=== PATIENT | male | born 1990 | race Caucasian/White ===

== ENCOUNTER 2016-09-08 13:35 | Emergency (ER) | payer SELFPAY ==
--- NOTE | 2016-09-08 14:37 | DIAGNOSTIC IMAGING REPORT ---
PROCEDURE: XR CHEST 1 VIEW INDICATION: SHORTNESS OF BREATH TECHNIQUE: Portable AP view 02:02 p.m. COMPARISON: None. FINDINGS: Lungs are clear. Heart and mediastinum are normal. Thorax is normal. IMPRESSION: 1. Negative chest.
--- NOTE | 2016-09-08 14:58 | ED CLINICAL REPORT ---
Clinical Report - Physicians/Mid Levels [facility] [address] [place] [address] 09/08/2016 13:38 Patient: GIRMA ASTORGA Time Seen: 1355; initial patient contact, initial documentation, patient care assumed. Arrived- By private vehicle. Historian- patient. HISTORY OF PRESENT ILLNESS Chief Complaint: DYSPNEA. This started about 1 weeks ago and is still present. The dyspnea is described as mild. The patient has had sputum production, a cough and wheezing. No fever or chest pain or discomfort. He has had moderate dyspnea on exertion of sudden onset. Initially, it was precipitated by a brisk walk and moderate exertion. Now, it is precipitated by a short walk and mild exertion. (used his friend's inhaler). Similar symptoms previously: None. Recent medical care: The patient was seen recently in a clinic. 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 REVIEW OF SYSTEMS No sore throat, nasal discharge or sinus drainage. All systems otherwise negative, except as recorded above. PAST HISTORY Negative. SOCIAL HISTORY Former smoker. Occasional alcohol use. No drug use. No recent travel. Is a local resident. FAMILY HISTORY Diabetes in first-degree relative (father); cancer in first-degree relative. ADDITIONAL NOTES The nursing notes have been reviewed with agreement regarding the chief complaint, HPI, ROS, PMH and patient medications and allergies. PHYSICAL EXAM Vital Signs: 09/08/2016 13:31 BP: 107/81. HR: 73. RR: 18. O2 saturation: 95%. Temp: 99 F. Pain level now: 0/10. Have been reviewed as normal and appear to be correct. Appearance: Alert. No acute distress. Eyes: Pupils equal, round and reactive to light. Eyes normal inspection. ENT: Ears normal. Nose normal. Pharynx normal. Uvula midline. Neck: Normal inspection. No jugular venous distention. Neck supple. CVS: Normal heart rate and rhythm. Heart sounds normal. Pulses normal. Respiratory: No respiratory distress. Breath sounds abnormal. Inspiratory moderate bilateral wheezes diffusely. Abdomen: Soft and nontender. No organomegaly. Back: Normal inspection. Skin: Skin warm and dry. Normal skin color. No rash. Normal skin turgor. Extremities: Extremities exhibit normal ROM. No lower extremity edema. Neuro: Oriented X 3. No motor deficit. No sensory deficit. LABS, X-RAYS, AND EKG EKG: EKG time: (1348). No acute process. No acute ischemia. Normal EKG. Rate: 76. Normal EKG. The study has been interpreted contemporaneously by me (and dr armstrong). The EKG appears to be a good tracing. Interpretation time: 1348. Chest X-ray: Normal Chest X-Ray. (IMPRESSION: 1. Negative chest. Electronically Final signed by:Farhan Alfonso MD 09/08/2016 2:37:21 PM). The X-rays were interpreted by the radiologist and contemporaneously by me. Interpretation time: 14:46. PROGRESS AND PROCEDURES Course of Care: 14:46 09/08/16. RT reporting pt breathing better and pt stopped the tx on his own stating it was making him sleepy 1445. Resp even and unlabored, B breath sounds CTA, no more wheezing, and pt stated he felt better, encouraged to get otc cough med as well as rx and f/u in a few days. Patient counseled in person regarding the patient's stable condition, test results and diagnosis. Differential Diagnosis: Other possible considerations: flu, viral illness, allergies, bronchitis, pneumonia. Above considerations are based on history, physical exam, reassessment, X-Ray data and EKG. Differential diagnosis was discussed with patient. Disposition: Discharged home in good and improved condition (14:58). Condition: good and stable. CLINICAL IMPRESSION Acute bacterial mucopurulent bronchitis associated with bronchospasm. No chronic obstructive pulmonary disease or asthma. INSTRUCTIONS Avoid tobacco smoke. (over the counter cough med, such as: mucinex dm, robitussin dm, delsym dm, as discussed). Warnings: GENERAL WARNINGS: Return or contact your physician immediately if your condition worsens or changes unexpectedly, if not improving as expected, or if other problems arise. SPECIFICALLY, return if you develop chest pain, neck pain, jaw pain, shoulder pain, arm pain, back pain, fever, difficulty breathing, excessive fatigue, a fluttering sensation in the chest, fainting or leg swelling. Prescription Medications: Albuterol HFA oral inhaler: inhale 1 to 2 puffs every four to six hours as needed for difficulty breathing. Dispense one (1) unit. No refills. Zithromax 250 mg tablets: take 2 orally today, followed by 1 daily for the next 4 days. No refills. Substitution is permissible. Follow-up: Follow up with your doctor in about three days even if well. Call for an appointment. Summary of care provided to patient. Understanding of the discharge instructions verbalized by patient. Follow-up with: [facility], , , [address], [facility], [address] Follow up in about three days as needed. Call for an appointment. Summary of care provided to patient. (Electronically signed by Dianna Pickett A.R.N.P. 09/08/2016 17:04)
--- NOTE | 2016-09-08 14:58 | ED ORDER SUMMARY ---
..... Patient: GIRMA ASTORGA OrderSheet [facility] VisitID: [id number] [address] [place] [address] 26y, M Registration Date/Time: 09/08/2016 ORDER SHEET Weight: 65.7 kg (stated) Allergies: No Known Drug Allergy GENERAL ORDERS: Chest 1V Urgent (13:54 09/08/2016 MCook R.N. per protocol) (Ack 13:56 IJurca ER Tech1) (14:03 MCook R.N.) MEDICATION ORDERS: Albuterol Neb w Atrovent 1 unit dose (NOW) (14:04 09/08/2016 HBivens A.R.N.P.) (15:05 MCook R.N.) Albuterol Neb Tx 2 unit doses (NOW) (14:04 09/08/2016 HBivens A.R.N.P.) (15:06 MCook R.N.) IV FLUIDS: ORDER SHEET NOTES: [Electronically signed by Luigi Amezcua R.N. (15:19 09/08/2016)] [Electronically signed by Dianna PickettR.N.P. (17:04 09/08/2016)] [Electronically locked/signed by Luigi Amezcua R.N. (15:19 09/08/2016)]
--- NOTE | 2016-09-08 14:58 | ED NURSING NOTES ---
Clinical Report - Nurses [facility] [address] [place] [address] 09/08/2016 13:38 Patient: GIRMA ASTORGA TRIAGE Triage time 13:30 Sep 08 2016. Acuity: LEVEL 3. Chief Complaint: DIFFICULTY BREATHING and WHEEZING. Alert. No acute distress. SEPSIS SCREEN: Sepsis Screen. Negative (no infection suspected/documented). --13:48 Luigi Amezcua R.N. 13:31 09/08/16. BP: 107/81. HR: 73. RR: 18. O2 saturation: 95% on room air. Temp: 99 F. Pain level now: 0/10. --13:48 Luigi Amezcua R.N. Weight: 65.7 kg stated. Height/Length: 66 inches. BMI: 23.4. --13:39 Luigi Amzecua R.N. Medications None. --13:45 Luigi Amezcua R.N. Allergies No Known Drug Allergy. --13:45 Luigi Amezcua R.N. History Arrived by private vehicle. Historian: patient. Accompanied by family. Onset. (1-2 weeks ago). ( Pt has been having difficulty breathing for a few weeks, states there is mold in the trailer he lives in on his grandparents property.). He has had a nonproductive cough (weak). He has had wheezing. ( Chest tightness). No fever, chest pain or back pain. 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 PAST MEDICAL HX: No history of asthma or chronic obstructive pulmonary disease. Immunizations: up-to-date. SURGERY HX: No history of previous surgery. SOCIAL HX: Former smoker (Pt quit a few years ago). Occasional alcohol use. No drug use. No infectious disease exposure. FALL RISK ASSESSMENT: Fall risk assessment completed. No fall risk identified. NUTRITIONAL RISK ASSESSMENT: The nutritional risk assessment revealed no deficiencies. FUNCTIONAL ASSESSMENT: Functional assessment: no impairments noted. LEARNING NEEDS ASSESSMENT: The learning needs assessment revealed no barriers. SKIN INTEGRITY ASSESSMENT: Skin integrity risk assessment completed. No skin integrity risk identified. --13:48 Luigi Amezcua R.N. PROBLEMS: no known problems. ADDITIONAL SURGERIES: no known surgeries. Interventions ID band on patient. To treatment room. --13:48 Luigi Amezcua R.N. PHYSICAL ASSESSMENT To room via wheelchair. GENERAL / NEURO / PSYCH: Alert. Oriented X 4. Appears anxious and in distress. RESPIRATORY: Mild respiratory distress. The patient can speak in full sentences. Mild clavicular accessory muscle use. Chest nontender. Wheezing present. CVS: Normal sinus rhythm noted. SKIN: Skin is pale. Skin is warm and dry. --13:48 Luigi Amezcua R.N. NURSING PROGRESS NOTES The plan of care for this patient has been created. Monitoring of patient in place. Patient gowned. Head of bed elevated. Reassurance given. Two patient identifiers checked. Call light placed in reach. Side rails up. Bed placed in lowest position. Patient ready for evaluation- chart flagged and ED physician notified. ( RT at bedside evaluating Pt.). --13:49 Luigi Amezcua R.N. 13:53 09/08/16. Temp: 97.7 F (oral). --13:53 Luigi Amezcua R.N. EKG time: (13:45 Sep 08 2016). EKG was performed by a tech and shown to the CHOIRMASTER. --13:53 Luigi Amezcua R.N. 13:56 09/08/16. O2 saturation: 90% on room air. --13:56 Luigi Amezcua R.N. ( Placed Pt on 2L 02 nasal cannula.). --13:56 Luigi Amezcua R.N. ( XR at bedside, CHOIRMASTER in to assess Pt, grandmother and Pt's little brother stepped out in bauer.). --14:01 Luigi Amezcua R.N. 14:02 09/08/16. O2 saturation: 97% on nasal cannula at 2 liters/minute. --14:02 Luigi Amezcua R.N. 14:50 09/08/2016 ALBUTEROL NEB W ATROVENT Neb TX Nebulizer 1 unit dose given. Given by the respiratory therapist. Allergies verified and confirmed 5 rights. --15:05 Luigi Amezcua R.N. 14:56 09/08/2016 Albuterol Neb TX Nebulizer 2 unit dose given. Given by the respiratory therapist. Allergies verified and confirmed 5 rights. --15:06 Luigi Amezcua R.N. DISPOSITION / DISCHARGE 15:12 09/08/16. BP: 112/47. HR: 86. RR: 18. O2 saturation: 95% on room air. Temp: 98 F. Pain level now: 0/10. --15:15 Luigi Amezcua R.N. Condition at departure: improved and stable. The goals identified in the patient's plan of care were met. No learning barriers present. Discharge instructions provided and reviewed with the patient and family. Reviewed medication(s) side effects, precautions, dosing and course information. Prescription(s) given to the patient. Reviewed referral to a primary care physician for followup. Patient and family verbalized understanding. Written instructions provided in Upper Sorbian. The patient was discharged by the nurse practitioner. He was discharged home and accompanied by family. He left the Emergency Department ambulatory and via private vehicle. Patient driving. ( Pt dc'd in stable condition, VSS, afebrile, 02 sats stable on RA, Pt ambulatory, verbalized understanding of DC instructions.). --15:17 Luigi Amezcua R.N. Departure time: 15:Sep 08 2016. --15:17 Luigi Amezcua R.N. Locked/Released at 09/08/2016 15:19 by Luigi Amezcua R.N.
--- NOTE | 2016-09-08 14:58 | ED CLINICAL REPORT ---
Clinical Report - Physicians/Mid Levels [facility] [address] [place] [address] 09/08/2016 13:38 Patient: GIRMA ASTORAG Time Seen: 1355; initial patient contact, initial documentation, patient care assumed. Arrived- By private vehicle. Historian- patient. HISTORY OF PRESENT ILLNESS Chief Complaint: DYSPNEA. This started about 1 weeks ago and is still present. The dyspnea is described as mild. The patient has had sputum production, a cough and wheezing. No fever or chest pain or discomfort. He has had moderate dyspnea on exertion of sudden onset. Initially, it was precipitated by a brisk walk and moderate exertion. Now, it is precipitated by a short walk and mild exertion. (used his friend's inhaler). Similar symptoms previously: None. Recent medical care: The patient was seen recently in a clinic. 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 REVIEW OF SYSTEMS No sore throat, nasal discharge or sinus drainage. All systems otherwise negative, except as recorded above. PAST HISTORY Negative. SOCIAL HISTORY Former smoker. Occasional alcohol use. No drug use. No recent travel. Is a local resident. FAMILY HISTORY Diabetes in first-degree relative (father); cancer in first-degree relative. ADDITIONAL NOTES The nursing notes have been reviewed with agreement regarding the chief complaint, HPI, ROS, PMH and patient medications and allergies. PHYSICAL EXAM Vital Signs: 09/08/2016 13:31 BP: 107/81. HR: 73. RR: 18. O2 saturation: 95%. Temp: 99 F. Pain level now: 0/10. Have been reviewed as normal and appear to be correct. Appearance: Alert. No acute distress. Eyes: Pupils equal, round and reactive to light. Eyes normal inspection. ENT: Ears normal. Nose normal. Pharynx normal. Uvula midline. Neck: Normal inspection. No jugular venous distention. Neck supple. CVS: Normal heart rate and rhythm. Heart sounds normal. Pulses normal. Respiratory: No respiratory distress. Breath sounds abnormal. Inspiratory moderate bilateral wheezes diffusely. Abdomen: Soft and nontender. No organomegaly. Back: Normal inspection. Skin: Skin warm and dry. Normal skin color. No rash. Normal skin turgor. Extremities: Extremities exhibit normal ROM. No lower extremity edema. Neuro: Oriented X 3. No motor deficit. No sensory deficit. LABS, X-RAYS, AND EKG EKG: EKG time: (1348). No acute process. No acute ischemia. Normal EKG. Rate: 76. Normal EKG. The study has been interpreted contemporaneously by me (and dr armstrong). The EKG appears to be a good tracing. Interpretation time: 1348. Chest X-ray: Normal Chest X-Ray. (IMPRESSION: 1. Negative chest. Electronically Final signed by:Farhan Alfonso MD 09/08/2016 2:37:21 PM). The X-rays were interpreted by the radiologist and contemporaneously by me. Interpretation time: 14:46. PROGRESS AND PROCEDURES Course of Care: 14:46 09/08/16. RT reporting pt breathing better and pt stopped the tx on his own stating it was making him sleepy 1445. Resp even and unlabored, B breath sounds CTA, no more wheezing, and pt stated he felt better, encouraged to get otc cough med as well as rx and f/u in a few days. Patient counseled in person regarding the patient's stable condition, test results and diagnosis. Differential Diagnosis: Other possible considerations: flu, viral illness, allergies, bronchitis, pneumonia. Above considerations are based on history, physical exam, reassessment, X-Ray data and EKG. Differential diagnosis was discussed with patient. Disposition: Discharged home in good and improved condition (14:58). Condition: good and stable. CLINICAL IMPRESSION Acute bacterial mucopurulent bronchitis associated with bronchospasm. No chronic obstructive pulmonary disease or asthma. INSTRUCTIONS Avoid tobacco smoke. (over the counter cough med, such as: mucinex dm, robitussin dm, delsym dm, as discussed). Warnings: GENERAL WARNINGS: Return or contact your physician immediately if your condition worsens or changes unexpectedly, if not improving as expected, or if other problems arise. SPECIFICALLY, return if you develop chest pain, neck pain, jaw pain, shoulder pain, arm pain, back pain, fever, difficulty breathing, excessive fatigue, a fluttering sensation in the chest, fainting or leg swelling. Prescription Medications: Albuterol HFA oral inhaler: inhale 1 to 2 puffs every four to six hours as needed for difficulty breathing. Dispense one (1) unit. No refills. Zithromax 250 mg tablets: take 2 orally today, followed by 1 daily for the next 4 days. No refills. Substitution is permissible. Follow-up: Follow up with your doctor in about three days even if well. Call for an appointment. Summary of care provided to patient. Understanding of the discharge instructions verbalized by patient. Follow-up with: [facility], , , [address], [facility], [address] Follow up in about three days as needed. Call for an appointment. Summary of care provided to patient. (Electronically signed by Dianna Pickett A.R.N.P. 09/08/2016 17:04)
--- NOTE | 2016-09-08 14:58 | ED NURSING NOTES ---
Clinical Report - Nurses [facility] [address] [place] [address] 09/08/2016 13:38 Patient: GIRMA ASTORGA TRIAGE Triage time 13:30 Sep 08 2016. Acuity: LEVEL 3. Chief Complaint: DIFFICULTY BREATHING and WHEEZING. Alert. No acute distress. SEPSIS SCREEN: Sepsis Screen. Negative (no infection suspected/documented). --13:48 Luigi Amezcua R.N. 13:31 09/08/16. BP: 107/81. HR: 73. RR: 18. O2 saturation: 95% on room air. Temp: 99 F. Pain level now: 0/10. --13:48 Luigi Amezcua R.N. Weight: 65.7 kg stated. Height/Length: 66 inches. BMI: 23.4. --13:39 Luigi Amezcua R.N. Medications None. --13:45 Luigi Amezcua R.N. Allergies No Known Drug Allergy. --13:45 Luigi Amezcua R.N. History Arrived by private vehicle. Historian: patient. Accompanied by family. Onset. (1-2 weeks ago). ( Pt has been having difficulty breathing for a few weeks, states there is mold in the trailer he lives in on his grandparents property.). He has had a nonproductive cough (weak). He has had wheezing. ( Chest tightness). No fever, chest pain or back pain. 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 PAST MEDICAL HX: No history of asthma or chronic obstructive pulmonary disease. Immunizations: up-to-date. SURGERY HX: No history of previous surgery. SOCIAL HX: Former smoker (Pt quit a few years ago). Occasional alcohol use. No drug use. No infectious disease exposure. FALL RISK ASSESSMENT: Fall risk assessment completed. No fall risk identified. NUTRITIONAL RISK ASSESSMENT: The nutritional risk assessment revealed no deficiencies. FUNCTIONAL ASSESSMENT: Functional assessment: no impairments noted. LEARNING NEEDS ASSESSMENT: The learning needs assessment revealed no barriers. SKIN INTEGRITY ASSESSMENT: Skin integrity risk assessment completed. No skin integrity risk identified. --13:48 Luigi Amezcua R.N. PROBLEMS: no known problems. ADDITIONAL SURGERIES: no known surgeries. Interventions ID band on patient. To treatment room. --13:48 Luigi Amezcua R.N. PHYSICAL ASSESSMENT To room via wheelchair. GENERAL / NEURO / PSYCH: Alert. Oriented X 4. Appears anxious and in distress. RESPIRATORY: Mild respiratory distress. The patient can speak in full sentences. Mild clavicular accessory muscle use. Chest nontender. Wheezing present. CVS: Normal sinus rhythm noted. SKIN: Skin is pale. Skin is warm and dry. --13:48 Luigi Amezcua R.N. NURSING PROGRESS NOTES The plan of care for this patient has been created. Monitoring of patient in place. Patient gowned. Head of bed elevated. Reassurance given. Two patient identifiers checked. Call light placed in reach. Side rails up. Bed placed in lowest position. Patient ready for evaluation- chart flagged and ED physician notified. ( RT at bedside evaluating Pt.). --13:49 Luigi Amezcua R.N. 13:53 09/08/16. Temp: 97.7 F (oral). --13:53 Luigi Amezcua R.N. EKG time: (13:45 Sep 08 2016). EKG was performed by a tech and shown to the VOLCANOLOGIST. --13:53 Luigi Amezcua R.N. 13:56 09/08/16. O2 saturation: 90% on room air. --13:56 Luigi Amezcua R.N. ( Placed Pt on 2L 02 nasal cannula.). --13:56 Luigi Amezcua R.N. ( XR at bedside, VOLCANOLOGIST in to assess Pt, grandmother and Pt's little brother stepped out in bauer.). --14:01 Luigi Amezcua R.N. 14:02 09/08/16. O2 saturation: 97% on nasal cannula at 2 liters/minute. --14:02 Luigi Amezcua R.N. 14:50 09/08/2016 ALBUTEROL NEB W ATROVENT Neb TX Nebulizer 1 unit dose given. Given by the respiratory therapist. Allergies verified and confirmed 5 rights. --15:05 Luigi Amezcua R.N. 14:56 09/08/2016 Albuterol Neb TX Nebulizer 2 unit dose given. Given by the respiratory therapist. Allergies verified and confirmed 5 rights. --15:06 Luigi Amezcua R.N. DISPOSITION / DISCHARGE 15:12 09/08/16. BP: 112/47. HR: 86. RR: 18. O2 saturation: 95% on room air. Temp: 98 F. Pain level now: 0/10. --15:15 Luigi Amezcua R.N. Condition at departure: improved and stable. The goals identified in the patient's plan of care were met. No learning barriers present. Discharge instructions provided and reviewed with the patient and family. Reviewed medication(s) side effects, precautions, dosing and course information. Prescription(s) given to the patient. Reviewed referral to a primary care physician for followup. Patient and family verbalized understanding. Written instructions provided in Nepali. The patient was discharged by the nurse practitioner. He was discharged home and accompanied by family. He left the Emergency Department ambulatory and via private vehicle. Patient driving. ( Pt dc'd in stable condition, VSS, afebrile, 02 sats stable on RA, Pt ambulatory, verbalized understanding of DC instructions.). --15:17 Luigi Amezcua R.N. Departure time: 15:Sep 08 2016. --15:17 Luigi Amezcua R.N. Locked/Released at 09/08/2016 15:19 by Luigi Amezcua R.N.
--- NOTE | 2016-09-08 14:58 | ED ORDER SUMMARY ---
..... Patient: GIRMA ASTORGA OrderSheet [facility] VisitID: [id number] [address] [place] [address] 26y, M Registration Date/Time: 09/08/2016 ORDER SHEET Weight: 65.7 kg (stated) Allergies: No Known Drug Allergy GENERAL ORDERS: Chest 1V Urgent (13:54 09/08/2016 MCook R.N. per protocol) (Ack 13:56 IJurca ER Tech1) (14:03 MCook R.N.) MEDICATION ORDERS: Albuterol Neb w Atrovent 1 unit dose (NOW) (14:04 09/08/2016 HBivens A.R.N.P.) (15:05 MCook R.N.) Albuterol Neb Tx 2 unit doses (NOW) (14:04 09/08/2016 HBivens A.R.N.P.) (15:06 MCook R.N.) IV FLUIDS: ORDER SHEET NOTES: [Electronically signed by Luigi Amezcua R.N. (15:19 09/08/2016)] [Electronically signed by Dianna PickettR.N.P. (17:04 09/08/2016)] [Electronically locked/signed by Luigi Amezcua R.N. (15:19 09/08/2016)]
--- NOTE | 2016-09-08 17:04 | ED MAR SUMMARY ---
..... Medication Administration Record [facility] [address] [place] [address] Patient: GIRMA ASTORGA Visit ID: [id number] 26y, M Weight: 65.7 kg Height/Length: 66 in BMI: 23.4 ALLERGIES: No Known Drug Allergy Given 14:50 09/08/2016 Luigi Amezcua R.N. Medication Administered: ALBUTEROL NEB W ATROVENT, Dose: 1 unit dose Nebulizer Neb TX. Medication Ordered: Albuterol Neb w Atrovent 1 unit dose (NOW). Given 14:56 09/08/2016 Luigi Amezcua R.N. Medication Administered: ALBUTEROL [NEB TX], Dose: 2 unit dose Nebulizer Neb TX. Medication Ordered: Albuterol Neb Tx 2 unit doses (NOW).
--- NOTE | 2016-09-08 17:04 | ED MAR SUMMARY ---
..... Medication Administration Record [facility] [address] [place] [address] Patient: GIRMA ASTORGA Visit ID: [id number] 26y, M Weight: 65.7 kg Height/Length: 66 in BMI: 23.4 ALLERGIES: No Known Drug Allergy Given 14:50 09/08/2016 Luigi Amezcua R.N. Medication Administered: ALBUTEROL NEB W ATROVENT, Dose: 1 unit dose Nebulizer Neb TX. Medication Ordered: Albuterol Neb w Atrovent 1 unit dose (NOW). Given 14:56 09/08/2016 Luigi Amezcua R.N. Medication Administered: ALBUTEROL [NEB TX], Dose: 2 unit dose Nebulizer Neb TX. Medication Ordered: Albuterol Neb Tx 2 unit doses (NOW).
--- NOTE | 2016-09-08 17:04 | ED DISCHARGE INSTRUCTIONS ---
Patient: GIRMA ASTORGA General Instructions [facility] VisitID: [id number] [address] [place] [address] 26y, M Registration Date/Time: 09/08/2016 INSTRUCTIONS Avoid tobacco smoke. (over the counter cough med, such as: mucinex dm, robitussin dm, delsym dm, as discussed). Warnings: GENERAL WARNINGS: Return or contact your physician immediately if your condition worsens or changes unexpectedly, if not improving as expected, or if other problems arise. SPECIFICALLY, return if you develop chest pain, neck pain, jaw pain, shoulder pain, arm pain, back pain, fever, difficulty breathing, excessive fatigue, a fluttering sensation in the chest, fainting or leg swelling. Prescription Medications: Albuterol HFA oral inhaler: inhale 1 to 2 puffs every four to six hours as needed for difficulty breathing. Dispense one (1) unit. No refills. Zithromax 250 mg tablets: take 2 orally today, followed by 1 daily for the next 4 days. No refills. Substitution is permissible. Follow-up: Follow up with your doctor in about three days even if well. Call for an appointment. Summary of care provided to patient. Understanding of the discharge instructions verbalized by patient. Follow-up with: [facility], , , [address], [facility], [id number] Follow up in about three days as needed. Call for an appointment. Summary of care provided to patient. ADDITIONAL INFORMATION Bronchitis (Adult: Abx Tx) BRONCHITIS is an infection of the air passages (bronchial tubes). It often occurs during the common cold. Symptoms include cough with mucus (phlegm) and low-grade fever. Bronchitis usually lasts 7-14 days. Mild cases can be treated with simple home remedies. More severe infection is treated with an antibiotic. Home Care: If symptoms are severe, rest at home for the first 2-3 days. When you resume activity, don't let yourself get too tired. Do not smoke. Avoid being exposed to the smoke of others. You may use acetaminophen (Tylenol) or ibuprofen (Motrin, Advil) to control fever or pain, unless another medicine was prescribed for this. [NOTE: If you have chronic liver or kidney disease or ever had a stomach ulcer or GI bleeding, talk with your doctor before using these medicines.] Your appetite may be poor, so a light diet is fine. Avoid dehydration by drinking 6-8 glasses of fluids per day (water, soft, drinks, juices, tea, soup, etc.). Extra fluids will help loosen secretions in the lungs. Rksm-ldo-darneka cough medicines that containdextromethorphan(such as Robitussin DM) and decongestants (Actifed or Sudafed) may help relieve cough and congestion. [NOTE: Do not use decongestants if you have high blood pressure.] Finish all antibiotic medicine, even if you are feeling better after only a few days. Follow Up with your doctor or as directed if you dont start to feel better after three days. [NOTE: If you are age 65 or older, or if you have chronic asthma or COPD, we recommend a PNEUMOCOCCAL VACCINATION every five years and a yearly INFLUENZAVACCINATION (FLU-SHOT) every . Ask your doctor about this. If you had an X-ray, a radiologist will review it. You will be notified of any new findings that may affect your care.] Get Prompt Medical Attention if any of the following occur: Fever over 100.4F (38.0C) for more than three days Trouble breathing, wheezing or pain with breathing Coughing up blood or increased amounts of colored sputum Weakness, drowsiness, headache, facial pain, ear pain or a stiff neck Albuterol Sulfate Pressurized inhalation, suspension What is this medicine? ALBUTEROL (al BYOO ter ole) is a bronchodilator. It helps open up the airways in your lungs to make it easier to breathe. This medicine is used to treat and to prevent bronchospasm. How should I use this medicine? This medicine is for inhalation through the mouth. Follow the directions on your prescription label. Take your medicine at regular intervals. Do not use more often than directed. Make sure that you are using your inhaler correctly. Ask you doctor or health care provider if you have any questions. Talk to your malt house kiln operator regarding the use of this medicine in children. Special care may be needed. What side effects may I notice from receiving this medicine? Side effects that you should report to your doctor or health care management associate as soon as possible: allergic reactions like skin rash, itching or hives, swelling of the face, lips, or tongue breathing problems chest pain feeling faint or lightheaded, falls high blood pressure irregular heartbeat fever muscle cramps or weakness pain, tingling, numbness in the hands or feet vomiting Side effects that usually do not require medical attention (report to your doctor or health care management associate if they continue or are bothersome): cough difficulty sleeping headache nervousness or trembling stomach upset stuffy or runny nose throat irritation unusual taste What may interact with this medicine? anti-infectives like chloroquine and pentamidine caffeine cisapride diuretics medicines for colds medicines for depression or for emotional or psychotic conditions medicines for weight loss including some herbal products methadone some antibiotics like clarithromycin, erythromycin, levofloxacin, and linezolid some heart medicines steroid hormones like dexamethasone, cortisone, hydrocortisone theophylline thyroid hormones What if I miss a dose? If you miss a dose, use it as soon as you can. If it is almost time for your next dose, use only that dose. Do not use double or extra doses. Where should I keep my medicine? Keep out of the reach of children. Store at room temperature between 15 and 30 degrees C (59 and 86 degrees F). The contents are under pressure and may burst when exposed to heat or flame. Do not freeze. This medicine does not work as well if it is too cold. Throw away any unused medicine after the expiration date. Inhalers need to be thrown away after the labeled number of puffs have been used or by the expiration date; whichever comes first. Ventolin HFA should be thrown away 12 months after removing from foil pouch. Check the instructions that come with your medicine. What should I tell my health care provider before I take this medicine? They need to know if you have any of the following conditions: diabetes heart disease or irregular heartbeat high blood pressure pheochromocytoma seizures thyroid disease an unusual or allergic reaction to albuterol, levalbuterol, sulfites, other medicines, foods, dyes, or preservatives or trying to get breast-feeding What should I watch for while using this medicine? Tell your doctor or health care management associate if your symptoms do not improve. Do not use extra albuterol. If your asthma or bronchitis gets worse while you are using this medicine, call your doctor right away. If your mouth gets dry try chewing sugarless gum or sucking hard candy. Drink water as directed. Azithromycin Oral tablet What is this medicine? AZITHROMYCIN (jory wilkinson) is a macrolide antibiotic. It is used to treat or prevent certain kinds of bacterial infections. It will not work for colds, flu, or other viral infections. How should I use this medicine? Take this medicine by mouth with a full glass of water. Follow the directions on the prescription label. The tablets can be taken with food or on an empty stomach. If the medicine upsets your stomach, take it with food. Take your medicine at regular intervals. Do not take your medicine more often than directed. Take all of your medicine as directed even if you think your are better. Do not skip doses or stop your medicine early. Talk to your malt house kiln operator regarding the use of this medicine in children. Special care may be needed. What side effects may I notice from receiving this medicine? Side effects that you should report to your doctor or health care management associate as soon as possible: allergic reactions like skin rash, itching or hives, swelling of the face, lips, or tongue confusion, nightmares or hallucinations dark urine difficulty breathing hearing loss irregular heartbeat or chest pain pain or difficulty passing urine redness, blistering, peeling or loosening of the skin, including inside the mouth white patches or sores in the mouth yellowing of the eyes or skin Side effects that usually do not require medical attention (report to your doctor or health care management associate if they continue or are bothersome): diarrhea dizziness, drowsiness headache stomach upset or vomiting tooth discoloration vaginal irritation What may interact with this medicine? Do not take this medicine with any of the following medications: lincomycin This medicine may also interact with the following medications: amiodarone antacids cyclosporine digoxin magnesium nelfinavir phenytoin warfarin What if I miss a dose? If you miss a dose, take it as soon as you can. If it is almost time for your next dose, take only that dose. Do not take double or extra doses. Where should I keep my medicine? Keep out of the reach of children. Store at room temperature between 15 and 30 degrees C (59 and 86 degrees F). Throw away any unused medicine after the expiration date. What should I tell my health care provider before I take this medicine? They need to know if you have any of these conditions: kidney disease liver disease irregular heartbeat or heart disease an unusual or allergic reaction to azithromycin, erythromycin, other macrolide antibiotics, foods, dyes, or preservatives or trying to get breast-feeding What should I watch for while using this medicine? Tell your doctor or health care management associate if your symptoms do not improve. Do not treat diarrhea with over the counter products. Contact your doctor if you have diarrhea that lasts more than 2 days or if it is severe and watery. This medicine can make you more sensitive to the sun. Keep out of the sun. If you cannot avoid being in the sun, wear protective clothing and use sunscreen. Do not use sun lamps or tanning beds/booths. You have been given the following additional information: Bronchitis, Antiobiotic Treatment (Adult) Albuterol Sulfate Pressurized inhalation, suspension Azithromycin Oral tablet (Electronically signed by Dianna Pickett A.R.N.P. 09/08/2016 17:04)
--- NOTE | 2016-09-08 17:04 | ED MED RECONCILIATION SUMMARY ---
Patient: GIRMA ASTORGA Medication Reconciliation Report [facility] VisitID: [id number] [address] [place] [address] 26y, M Registration Date/Time: 09/08/2016 Weight: 65.7 kg Height/Length: 66 in. BMI: 23.4 ALLERGIES: No Known Drug Allergy The patient's Home Medications are listed below: NONE. The source(s) of the original Home Medication information: Not obtained. The following Medications were given to the patient in the Emergency Department: ALBUTEROL NEB W ATROVENT Neb TX 1 unit dose, administered: 09/08/2016 2:50:00 PM Albuterol [Neb Tx] Neb TX 2 unit dose, administered: 09/08/2016 2:56:00 PM The following Medications were prescribed to the patient: Albuterol HFA oral inhaler: inhale 1 to 2 puffs every four to six hours as needed for difficulty breathing. Dispense one (1) unit. No refills. -- Dianna Pickett A.R.NEugeniaP. Zithromax 250 mg tablets: take 2 orally today, followed by 1 daily for the next 4 days. No refills. Substitution is permissible. -- Dianna Pickett A.R.NEugeniaP.
--- NOTE | 2016-09-08 17:04 | ED DISCHARGE INSTRUCTIONS ---
Patient: GIRMA ASTORGA General Instructions [facility] VisitID: [id number] [address] [place] [address] 26y, M Registration Date/Time: 09/08/2016 INSTRUCTIONS Avoid tobacco smoke. (over the counter cough med, such as: mucinex dm, robitussin dm, delsym dm, as discussed). Warnings: GENERAL WARNINGS: Return or contact your physician immediately if your condition worsens or changes unexpectedly, if not improving as expected, or if other problems arise. SPECIFICALLY, return if you develop chest pain, neck pain, jaw pain, shoulder pain, arm pain, back pain, fever, difficulty breathing, excessive fatigue, a fluttering sensation in the chest, fainting or leg swelling. Prescription Medications: Albuterol HFA oral inhaler: inhale 1 to 2 puffs every four to six hours as needed for difficulty breathing. Dispense one (1) unit. No refills. Zithromax 250 mg tablets: take 2 orally today, followed by 1 daily for the next 4 days. No refills. Substitution is permissible. Follow-up: Follow up with your doctor in about three days even if well. Call for an appointment. Summary of care provided to patient. Understanding of the discharge instructions verbalized by patient. Follow-up with: [facility], , , [address], [facility], [id number] Follow up in about three days as needed. Call for an appointment. Summary of care provided to patient. ADDITIONAL INFORMATION Bronchitis (Adult: Abx Tx) BRONCHITIS is an infection of the air passages (bronchial tubes). It often occurs during the common cold. Symptoms include cough with mucus (phlegm) and low-grade fever. Bronchitis usually lasts 7-14 days. Mild cases can be treated with simple home remedies. More severe infection is treated with an antibiotic. Home Care: If symptoms are severe, rest at home for the first 2-3 days. When you resume activity, don't let yourself get too tired. Do not smoke. Avoid being exposed to the smoke of others. You may use acetaminophen (Tylenol) or ibuprofen (Motrin, Advil) to control fever or pain, unless another medicine was prescribed for this. [NOTE: If you have chronic liver or kidney disease or ever had a stomach ulcer or GI bleeding, talk with your doctor before using these medicines.] Your appetite may be poor, so a light diet is fine. Avoid dehydration by drinking 6-8 glasses of fluids per day (water, soft, drinks, juices, tea, soup, etc.). Extra fluids will help loosen secretions in the lungs. Rrdq-zlj-jigyrdm cough medicines that containdextromethorphan(such as Robitussin DM) and decongestants (Actifed or Sudafed) may help relieve cough and congestion. [NOTE: Do not use decongestants if you have high blood pressure.] Finish all antibiotic medicine, even if you are feeling better after only a few days. Follow Up with your doctor or as directed if you dont start to feel better after three days. [NOTE: If you are age 65 or older, or if you have chronic asthma or COPD, we recommend a PNEUMOCOCCAL VACCINATION every five years and a yearly INFLUENZAVACCINATION (FLU-SHOT) every . Ask your doctor about this. If you had an X-ray, a radiologist will review it. You will be notified of any new findings that may affect your care.] Get Prompt Medical Attention if any of the following occur: Fever over 100.4F (38.0C) for more than three days Trouble breathing, wheezing or pain with breathing Coughing up blood or increased amounts of colored sputum Weakness, drowsiness, headache, facial pain, ear pain or a stiff neck Albuterol Sulfate Pressurized inhalation, suspension What is this medicine? ALBUTEROL (al BYOO ter ole) is a bronchodilator. It helps open up the airways in your lungs to make it easier to breathe. This medicine is used to treat and to prevent bronchospasm. How should I use this medicine? This medicine is for inhalation through the mouth. Follow the directions on your prescription label. Take your medicine at regular intervals. Do not use more often than directed. Make sure that you are using your inhaler correctly. Ask you doctor or health care provider if you have any questions. Talk to your job developer regarding the use of this medicine in children. Special care may be needed. What side effects may I notice from receiving this medicine? Side effects that you should report to your doctor or health aged or disabled care worker as soon as possible: allergic reactions like skin rash, itching or hives, swelling of the face, lips, or tongue breathing problems chest pain feeling faint or lightheaded, falls high blood pressure irregular heartbeat fever muscle cramps or weakness pain, tingling, numbness in the hands or feet vomiting Side effects that usually do not require medical attention (report to your doctor or health aged or disabled care worker if they continue or are bothersome): cough difficulty sleeping headache nervousness or trembling stomach upset stuffy or runny nose throat irritation unusual taste What may interact with this medicine? anti-infectives like chloroquine and pentamidine caffeine cisapride diuretics medicines for colds medicines for depression or for emotional or psychotic conditions medicines for weight loss including some herbal products methadone some antibiotics like clarithromycin, erythromycin, levofloxacin, and linezolid some heart medicines steroid hormones like dexamethasone, cortisone, hydrocortisone theophylline thyroid hormones What if I miss a dose? If you miss a dose, use it as soon as you can. If it is almost time for your next dose, use only that dose. Do not use double or extra doses. Where should I keep my medicine? Keep out of the reach of children. Store at room temperature between 15 and 30 degrees C (59 and 86 degrees F). The contents are under pressure and may burst when exposed to heat or flame. Do not freeze. This medicine does not work as well if it is too cold. Throw away any unused medicine after the expiration date. Inhalers need to be thrown away after the labeled number of puffs have been used or by the expiration date; whichever comes first. Ventolin HFA should be thrown away 12 months after removing from foil pouch. Check the instructions that come with your medicine. What should I tell my health care provider before I take this medicine? They need to know if you have any of the following conditions: diabetes heart disease or irregular heartbeat high blood pressure pheochromocytoma seizures thyroid disease an unusual or allergic reaction to albuterol, levalbuterol, sulfites, other medicines, foods, dyes, or preservatives or trying to get breast-feeding What should I watch for while using this medicine? Tell your doctor or health aged or disabled care worker if your symptoms do not improve. Do not use extra albuterol. If your asthma or bronchitis gets worse while you are using this medicine, call your doctor right away. If your mouth gets dry try chewing sugarless gum or sucking hard candy. Drink water as directed. Azithromycin Oral tablet What is this medicine? AZITHROMYCIN (jory wilkinson) is a macrolide antibiotic. It is used to treat or prevent certain kinds of bacterial infections. It will not work for colds, flu, or other viral infections. How should I use this medicine? Take this medicine by mouth with a full glass of water. Follow the directions on the prescription label. The tablets can be taken with food or on an empty stomach. If the medicine upsets your stomach, take it with food. Take your medicine at regular intervals. Do not take your medicine more often than directed. Take all of your medicine as directed even if you think your are better. Do not skip doses or stop your medicine early. Talk to your job developer regarding the use of this medicine in children. Special care may be needed. What side effects may I notice from receiving this medicine? Side effects that you should report to your doctor or health aged or disabled care worker as soon as possible: allergic reactions like skin rash, itching or hives, swelling of the face, lips, or tongue confusion, nightmares or hallucinations dark urine difficulty breathing hearing loss irregular heartbeat or chest pain pain or difficulty passing urine redness, blistering, peeling or loosening of the skin, including inside the mouth white patches or sores in the mouth yellowing of the eyes or skin Side effects that usually do not require medical attention (report to your doctor or health aged or disabled care worker if they continue or are bothersome): diarrhea dizziness, drowsiness headache stomach upset or vomiting tooth discoloration vaginal irritation What may interact with this medicine? Do not take this medicine with any of the following medications: lincomycin This medicine may also interact with the following medications: amiodarone antacids cyclosporine digoxin magnesium nelfinavir phenytoin warfarin What if I miss a dose? If you miss a dose, take it as soon as you can. If it is almost time for your next dose, take only that dose. Do not take double or extra doses. Where should I keep my medicine? Keep out of the reach of children. Store at room temperature between 15 and 30 degrees C (59 and 86 degrees F). Throw away any unused medicine after the expiration date. What should I tell my health care provider before I take this medicine? They need to know if you have any of these conditions: kidney disease liver disease irregular heartbeat or heart disease an unusual or allergic reaction to azithromycin, erythromycin, other macrolide antibiotics, foods, dyes, or preservatives or trying to get breast-feeding What should I watch for while using this medicine? Tell your doctor or health aged or disabled care worker if your symptoms do not improve. Do not treat diarrhea with over the counter products. Contact your doctor if you have diarrhea that lasts more than 2 days or if it is severe and watery. This medicine can make you more sensitive to the sun. Keep out of the sun. If you cannot avoid being in the sun, wear protective clothing and use sunscreen. Do not use sun lamps or tanning beds/booths. You have been given the following additional information: Bronchitis, Antiobiotic Treatment (Adult) Albuterol Sulfate Pressurized inhalation, suspension Azithromycin Oral tablet (Electronically signed by Dianna Pickett A.R.N.P. 09/08/2016 17:04)
--- NOTE | 2016-09-08 17:04 | ED MED RECONCILIATION SUMMARY ---
Patient: GIRMA ASTORGA Medication Reconciliation Report [facility] VisitID: [id number] [address] [place] [address] 26y, M Registration Date/Time: 09/08/2016 Weight: 65.7 kg Height/Length: 66 in. BMI: 23.4 ALLERGIES: No Known Drug Allergy The patient's Home Medications are listed below: NONE. The source(s) of the original Home Medication information: Not obtained. The following Medications were given to the patient in the Emergency Department: ALBUTEROL NEB W ATROVENT Neb TX 1 unit dose, administered: 09/08/2016 2:50:00 PM Albuterol [Neb Tx] Neb TX 2 unit dose, administered: 09/08/2016 2:56:00 PM The following Medications were prescribed to the patient: Albuterol HFA oral inhaler: inhale 1 to 2 puffs every four to six hours as needed for difficulty breathing. Dispense one (1) unit. No refills. -- Dianna Pickett A.R.NEugeniaP. Zithromax 250 mg tablets: take 2 orally today, followed by 1 daily for the next 4 days. No refills. Substitution is permissible. -- Dianna Pickett A.R.NEugeniaP.
== END 2016-09-08 15:19 | disposition home or self-care (01) ==
LOC: ED SRH 13:35
DX: J20.8 Acute bronchitis due to other specified organisms (principal); B96.89 Other specified bacterial agents as the cause of diseases classified elsewhere; Z87.891 Personal history of nicotine dependence

== ENCOUNTER 2016-09-09 18:28 | Emergency (ER) | payer SELFPAY ==
--- NOTE | 2016-09-09 20:25 | ED ORDER SUMMARY ---
..... Patient: GIRMA ASTORGA OrderSheet [facility] VisitID: [id number] [place] [address] 26y, M Registration Date/Time: 09/09/2016 ORDER SHEET Weight: 65.7 kg (stated) Allergies: No Known Drug Allergy GENERAL ORDERS: MEDICATION ORDERS: Albuterol Neb w Atrovent 1 unit dose (NOW) (19:25 09/09/2016 BONIFACIOivens A.R.N.P.) (Ack 19:29 [facility] Line Clearance Foreman) (19:48 ASing) IV FLUIDS: ORDER SHEET NOTES: [Electronically signed by Jose Miguel Luque R.N. (20:31 09/09/2016)] [Electronically signed by Dianna PickettR.N.PEugenia (20:52 09/09/2016)] [Electronically locked/signed by Jose Miguel Luque R.N. (20:31 09/09/2016)]
--- NOTE | 2016-09-09 20:25 | ED ORDER SUMMARY ---
..... 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 (20:31 09/09/2016)] [Electronically signed by Dianna PickettR.N.PEugenia (20:52 09/09/2016)] [Electronically locked/signed by Jose Miguel Luque R.N. (20:31 09/09/2016)]
--- NOTE | 2016-09-09 20:25 | ED CLINICAL REPORT ---
Clinical Report - Physicians/Mid Levels [facility] [address] [place] [address] 09/09/2016 18:27 Patient: GIRMA ASTORGA Time Seen: 19:16; initial patient contact, initial documentation, patient care assumed. Arrived- By private vehicle. Historian- patient. RETURN VISIT: recently seen in this ED by me. Seen now for the same problem as before. HISTORY OF PRESENT ILLNESS Is still present. Chief Complaint: HEADACHE. This started about 1 weeks ago. It is described as "pain". Located in the region of the right eye and left eye, frontal region and facial region. No neck pain. At its maximum, severity described as severe. When seen in the E.D., severity described as severe. Modifying factors: relieved by nothing. Not worsened by anything. No preceding symptoms, blurred vision, photophobia, associated nausea or numbness. No weakness or vomiting. No recent travel. Similar symptoms previously: None. Recent medical care: The patient was seen recently at this facility in the emergency department. ( txed here yesterday for same thing, dx bronchitis, rx albuterol and zithromax, says he got rx filled but still hasn't taken anything for the cough, was instructed to get otc cough meds, but did not). REVIEW OF SYSTEMS No fever, ear pain, sore throat or head injury. He has had sinus pressure. He has had mild difficulty breathing (used inhaler twice today). The patient has also had wheezing. He has had a moderate nonproductive cough. All systems otherwise negative, except as recorded above. PAST HISTORY See nurses notes. PROBLEMS: Bronchitis. --18:59 Radhika Jimenez, REugeniaN. ADDITIONAL SURGERIES: no known surgeries. SOCIAL HISTORY Former smoker. No alcohol use or drug use. No recent travel. Is a local resident. FAMILY HISTORY Diabetes in first-degree relative (father); other family history (cancer). ADDITIONAL NOTES The nursing notes have been reviewed with agreement regarding the chief complaint, HPI, ROS, PMH and patient medications and allergies. PHYSICAL EXAM Vital Signs: 09/09/2016 18:56 BP: 108/67. HR: 75. RR: 20. O2 saturation: 97%. Temp: 98.1 F. Have been reviewed as normal and appear to be correct. Appearance: Alert. No acute distress. Eyes: Pupils equal, round and reactive to light. Eyes normal inspection. ENT: Ears normal. Nose normal. Pharynx normal. Neck: Normal inspection. Neck supple. CVS: Normal heart rate and rhythm. Heart sounds normal. Pulses normal. Respiratory: No respiratory distress. Breath sounds abnormal. Expiratory and inspiratory mild bilateral wheezes diffusely. Abdomen: Soft and nontender. No organomegaly. Back: Normal inspection. Skin: Skin warm and dry. Normal skin color. No rash. Normal skin turgor. Extremities: Extremities exhibit normal ROM. No lower extremity edema. Neuro: Oriented X 3. Alert. Mood/affect normal. Speech normal. Cranial nerves normal (as tested). No cerebellar findings. No motor deficit. No sensory deficit. PROGRESS AND PROCEDURES Course of Care: chart from yesterday reviewed 2017. Resp even and unlabored, B breath sounds with mild insp wheeze heard R upper lobe posterior. 09/09/2016 19:19 HR: 94. RR: 32. O2 saturation: 97%. Vital Signs: have been reviewed as normal and appear to be correct. Patient and family counseled in person regarding the patient's stable condition, test results and diagnosis. Differential Diagnosis: Other possible considerations: flu, uri, sinusitis, asthma, allergies, bronchitis, pneumonia. Above considerations are based on history and physical exam. Differential diagnosis was discussed with patient. Disposition: Discharged home in good and improved condition (20:25). Condition: good and stable. CLINICAL IMPRESSION Acute bronchitis associated with bronchospasm. INSTRUCTIONS Alternate Tylenol (Acetaminophen) and Motrin (Ibuprofen) for fever, temperature greater than 101 degrees orally. Take according to label instructions. (over the counter cough medicine, continue with current course of antibiotics and inhaler, as discussed). Warnings: GENERAL WARNINGS: Return or contact your physician immediately if your condition worsens or changes unexpectedly, if not improving as expected, or if other problems arise. SPECIFICALLY, return if you develop fever, numbness, weakness or extreme fatigue. Follow-up: Follow up with your doctor in about three days even if well. Call for an appointment. Summary of care provided to patient. Understanding of the discharge instructions verbalized by patient. (Electronically signed by Dianna Pickett A.R.N.P. 09/09/2016 20:52)
--- NOTE | 2016-09-09 20:25 | ED NURSING NOTES ---
Clinical Report - Nurses [facility] [address] [place] [address] 09/09/2016 18:27 Patient: GIRMA ASTORGA TRIAGE Triage time 18:56 Sep 09 2016. Acuity: LEVEL 3. Chief Complaint: HEADACHE. KARELY COMA SCORE: [place] Coma Scale: 15- eyes open spontaneously (4); best verbal response- oriented x 4 (5); best motor response- obeys commands (6). --19:01 Radhika Jimenez R.N. 18:56 09/09/16. BP: 108/67. HR: 75. RR: 20. O2 saturation: 97%. Temp: 98.1 F. Pain level now 8/10. --19:01 Radhika Jimenez R.N. Weight: 65.7 kg stated. Height/Length: 66 inches Per Patient. BMI: 23.4. --19:00 Radhika Jimenez R.N. Medications Ibuprofen Oral. --18:58 Radhika Jimenez R.N. Albuterol Sulfate Inhalation. --18:58 Radhika Jimenez R.N. Antibiotic. --18:59 Radhika Jimenez R.N. Allergies No Known Drug Allergy. --18:59 Radhika Jimenez R.N. History Arrived by private vehicle. Historian: patient. Accompanied by family. This started today. ( Was seen yesterday and feels like he is more SOB and has a really bad headache. Used inhaler twice today.). He has had sinus pain. No nausea, vomiting, weakness, numbness or fever. PAST MEDICAL HX: Headaches. Head injury. No history of diabetes mellitus or hypertension. Immunizations: up-to-date. SOCIAL HX: Former smoker, end date 2013. No alcohol use or drug use. No recent travel. No known contact with a sick individual. SELF HARM ASSESSMENT: A self harm assessment was performed. The patient answered "no" to the question "Have you recently felt down, depressed, or hopeless?" and "Do you have thoughts of harming or killing yourself?". FALL RISK ASSESSMENT: Fall risk assessment completed. No fall risk identified. NUTRITIONAL RISK ASSESSMENT: The nutritional risk assessment revealed no deficiencies. FUNCTIONAL ASSESSMENT: Functional assessment: no impairments noted. LEARNING NEEDS ASSESSMENT: The learning needs assessment revealed no barriers. ABUSE ASSESSMENT: Abuse assessment: (yes) The patient was asked "Do you feel safe in your home?". SKIN INTEGRITY ASSESSMENT: Skin integrity risk assessment completed. No skin integrity risk identified. --19:01 Radhika Jimenez R.N. PROBLEMS: Bronchitis. --18:59 Radhika Jimenez R.N. ADDITIONAL SURGERIES: no known surgeries. Interventions ID band on patient. --19:01 Radhika Jimenez R.N. PHYSICAL ASSESSMENT Ambulatory to room. GENERAL / NEURO / PSYCH: Alert. Oriented X 4. Appears anxious. Speech within normal limits. HEENT: No facial asymmetry noted. Sinus tenderness present. Pupils equal, round and reactive to light. RESPIRATORY: Breath sounds within normal limits. ( Wheezing upper airway with exhale. +cough). CVS: Capillary refill less than 2 seconds. GI / : Abdomen soft and nontender. ( This am had BM and normal). SKIN: Skin is warm and dry. --19:02 Radhika Jimenez R.N. ( Dianna, TRAY PACKER with patient). GENERAL / NEURO / PSYCH: Alert. Oriented X 4. RESPIRATORY: Mild respiratory distress. Wheezes diffusely over both lungs. CVS: Capillary refill less than 2 seconds. --19:20 Jose Miguel Luque R.N. 19:19 09/09/16. HR: 94. RR: 32. O2 saturation: 97% on room air. O2 started via nasal cannula at 2 liters/minute. Additional comments: for SOA. --19:20 Jose Miguel Luque R.N. RESPIRATORY: ( dry cough). --19:44 Jose Miguel Luque R.N. NURSING PROGRESS NOTES Pulse oximeter and NIBP monitor placed on patient. Patient gowned. Head of bed elevated 90 degrees. Reassurance given. Lights dimmed. Call light placed in reach. Side rails up x 1. Bed placed in lowest position. Brakes of bed on. --19:03 Radhika Jimenez R.N. ( Report received from Radhika Schneider RN). --19:19 Jose Miguel Luque R.N. ( RT called). --19:22 Jose Miguel Luque R.N. DISPOSITION / DISCHARGE Departure time: 20:29. Condition at departure: improved and stable. No learning barriers present. Discharge instructions provided and reviewed with the patient. Reviewed warnings. Treatments reviewed. Reviewed referrals for followup. Patient verbalized understanding. The patient was discharged home and accompanied by family. He left the Emergency Department ambulatory and via private vehicle. ( unknown). --20:31 Jose Miguel Luque R.N. 20:29 09/09/16. BP: 130/59 taken on the left arm, while sitting. HR: 77. RR: 24 (regular and unlabored). O2 saturation: 99% on room air. --20:31 Jose Miguel Luque R.N. Locked/Released at 09/09/2016 20:31 by Jose Miguel Luque R.N.
--- NOTE | 2016-09-09 20:25 | ED NURSING NOTES ---
Clinical Report - Nurses [facility] [address] [place] [address] 09/09/2016 18:27 Patient: GIRMA ASTORGA TRIAGE Triage time 18:56 Sep 09 2016. Acuity: LEVEL 3. Chief Complaint: HEADACHE. KAERLY COMA SCORE: [place] Coma Scale: 15- eyes open spontaneously (4); best verbal response- oriented x 4 (5); best motor response- obeys commands (6). --19:01 Radhika Jimenez R.N. 18:56 09/09/16. BP: 108/67. HR: 75. RR: 20. O2 saturation: 97%. Temp: 98.1 F. Pain level now 8/10. --19:01 Radhika Jimenez R.N. Weight: 65.7 kg stated. Height/Length: 66 inches Per Patient. BMI: 23.4. --19:00 Radhika Jimenez R.N. Medications Ibuprofen Oral. --18:58 Radhika Jimenez R.N. Albuterol Sulfate Inhalation. --18:58 Radhika Jimenez R.N. Antibiotic. --18:59 Radhika Jimenez R.N. Allergies No Known Drug Allergy. --18:59 Radhika Jimenez R.N. History Arrived by private vehicle. Historian: patient. Accompanied by family. This started today. ( Was seen yesterday and feels like he is more SOB and has a really bad headache. Used inhaler twice today.). He has had sinus pain. No nausea, vomiting, weakness, numbness or fever. PAST MEDICAL HX: Headaches. Head injury. No history of diabetes mellitus or hypertension. Immunizations: up-to-date. SOCIAL HX: Former smoker, end date 2013. No alcohol use or drug use. No recent travel. No known contact with a sick individual. SELF HARM ASSESSMENT: A self harm assessment was performed. The patient answered "no" to the question "Have you recently felt down, depressed, or hopeless?" and "Do you have thoughts of harming or killing yourself?". FALL RISK ASSESSMENT: Fall risk assessment completed. No fall risk identified. NUTRITIONAL RISK ASSESSMENT: The nutritional risk assessment revealed no deficiencies. FUNCTIONAL ASSESSMENT: Functional assessment: no impairments noted. LEARNING NEEDS ASSESSMENT: The learning needs assessment revealed no barriers. ABUSE ASSESSMENT: Abuse assessment: (yes) The patient was asked "Do you feel safe in your home?". SKIN INTEGRITY ASSESSMENT: Skin integrity risk assessment completed. No skin integrity risk identified. --19:01 Radhika Jimenez R.N. PROBLEMS: Bronchitis. --18:59 Radhika Jimenez R.N. ADDITIONAL SURGERIES: no known surgeries. Interventions ID band on patient. --19:01 Radhika Jimenez R.N. PHYSICAL ASSESSMENT Ambulatory to room. GENERAL / NEURO / PSYCH: Alert. Oriented X 4. Appears anxious. Speech within normal limits. HEENT: No facial asymmetry noted. Sinus tenderness present. Pupils equal, round and reactive to light. RESPIRATORY: Breath sounds within normal limits. ( Wheezing upper airway with exhale. +cough). CVS: Capillary refill less than 2 seconds. GI / : Abdomen soft and nontender. ( This am had BM and normal). SKIN: Skin is warm and dry. --19:02 Radhika Jimenez R.N. ( Dianna, SAFETY INVESTIGATOR/CAUSE ANALYST with patient). GENERAL / NEURO / PSYCH: Alert. Oriented X 4. RESPIRATORY: Mild respiratory distress. Wheezes diffusely over both lungs. CVS: Capillary refill less than 2 seconds. --19:20 Jose Miguel Luque R.N. 19:19 09/09/16. HR: 94. RR: 32. O2 saturation: 97% on room air. O2 started via nasal cannula at 2 liters/minute. Additional comments: for SOA. --19:20 Jose Miguel Luque R.N. RESPIRATORY: ( dry cough). --19:44 Jose Miguel Luque R.N. NURSING PROGRESS NOTES Pulse oximeter and NIBP monitor placed on patient. Patient gowned. Head of bed elevated 90 degrees. Reassurance given. Lights dimmed. Call light placed in reach. Side rails up x 1. Bed placed in lowest position. Brakes of bed on. --19:03 Radhika Jimenez R.N. ( Report received from Radhika Schneider RN). --19:19 Jose Miguel Luque R.N. ( RT called). --19:22 Jose Miguel Luque R.N. DISPOSITION / DISCHARGE Departure time: 20:29. Condition at departure: improved and stable. No learning barriers present. Discharge instructions provided and reviewed with the patient. Reviewed warnings. Treatments reviewed. Reviewed referrals for followup. Patient verbalized understanding. The patient was discharged home and accompanied by family. He left the Emergency Department ambulatory and via private vehicle. ( unknown). --20:31 Jose Miguel Luque R.N. 20:29 09/09/16. BP: 130/59 taken on the left arm, while sitting. HR: 77. RR: 24 (regular and unlabored). O2 saturation: 99% on room air. --20:31 Jose Miguel Luque R.N. Locked/Released at 09/09/2016 20:31 by Jose Miguel Luque R.N.
--- NOTE | 2016-09-09 20:53 | ED MED RECONCILIATION SUMMARY ---
Patient: GIRMA ASTORGA Medication Reconciliation Report [facility] VisitID: [id number] [address] [place] [address] 26y, M Registration Date/Time: 09/09/2016 Weight: 65.7 kg Height/Length: 66 in. BMI: 23.4 ALLERGIES: No Known Drug Allergy The patient's Home Medications are listed below: THE FOLLOWING MEDICATIONS NEED TO BE RECONCILED: Albuterol Sulfate Inhalation Antibiotic Ibuprofen Oral The source(s) of the original Home Medication information: Not obtained. The following Medications were given to the patient in the Emergency Department: ALBUTEROL NEB W ATROVENT Neb [place] 1 unit dose, administered: 09/09/2016 7:38:00 PM The following Medications were prescribed to the patient: None.
--- NOTE | 2016-09-09 20:53 | ED MAR SUMMARY ---
..... Medication Administration Record [address] [place] [address] Patient: GIRMA ASTORGA Visit ID: [id number] 26y, M Weight: 65.7 kg Height/Length: 66 in BMI: 23.4 ALLERGIES: No Known Drug Allergy Given 19:38 09/09/2016 Bradford Bright, Medication Administered: ALBUTEROL NEB Jennie BENNETT, Dose: 1 unit dose [place]. Medication Ordered: Albuterol Neb w Atrovent 1 unit dose (NOW).
--- NOTE | 2016-09-09 20:53 | ED MAR SUMMARY ---
..... Medication Administration Record [address] [place] [address] Patient: GIRMA ASTORGA Visit ID: [id number] 26y, M Weight: 65.7 kg Height/Length: 66 in BMI: 23.4 ALLERGIES: No Known Drug Allergy Given 19:38 09/09/2016 Bradford Bright, Medication Administered: ALBUTEROL NEB Jennie BENNETT, Dose: 1 unit dose [place]. Medication Ordered: Albuterol Neb w Atrovent 1 unit dose (NOW).
--- NOTE | 2016-09-09 20:53 | ED DISCHARGE INSTRUCTIONS ---
Patient: GIRMA ASTORGA General Instructions [facility] VisitID: [id number] [place] [address] 26y, M Registration Date/Time: 09/09/2016 Acute bronchitis associated with bronchospasm. INSTRUCTIONS Alternate Tylenol (Acetaminophen) and Motrin (Ibuprofen) for fever, temperature greater than 101 degrees orally. Take according to label instructions. (over the counter cough medicine, continue with current course of antibiotics and inhaler, as discussed). Warnings: GENERAL WARNINGS: Return or contact your physician immediately if your condition worsens or changes unexpectedly, if not improving as expected, or if other problems arise. SPECIFICALLY, return if you develop fever, numbness, weakness or extreme fatigue. Follow-up: Follow up with your doctor in about three days even if well. Call for an appointment. Summary of care provided to patient. Understanding of the discharge instructions verbalized by patient. ADDITIONAL INFORMATION Bronchitis (Adult: Abx Tx) BRONCHITIS is an infection of the air passages (bronchial tubes). It often occurs during the common cold. Symptoms include cough with mucus (phlegm) and low-grade fever. Bronchitis usually lasts 7-14 days. Mild cases can be treated with simple home remedies. More severe infection is treated with an antibiotic. Home Care: If symptoms are severe, rest at home for the first 2-3 days. When you resume activity, don't let yourself get too tired. Do not smoke. Avoid being exposed to the smoke of others. You may use acetaminophen (Tylenol) or ibuprofen (Motrin, Advil) to control fever or pain, unless another medicine was prescribed for this. [NOTE: If you have chronic liver or kidney disease or ever had a stomach ulcer or GI bleeding, talk with your doctor before using these medicines.] Your appetite may be poor, so a light diet is fine. Avoid dehydration by drinking 6-8 glasses of fluids per day (water, soft, drinks, juices, tea, soup, etc.). Extra fluids will help loosen secretions in the lungs. Uiww-wxs-bfflbrl cough medicines that containdextromethorphan(such as Robitussin DM) and decongestants (Actifed or Sudafed) may help relieve cough and congestion. [NOTE: Do not use decongestants if you have high blood pressure.] Finish all antibiotic medicine, even if you are feeling better after only a few days. Follow Up with your doctor or as directed if you dont start to feel better after three days. [NOTE: If you are age 65 or older, or if you have chronic asthma or COPD, we recommend a PNEUMOCOCCAL VACCINATION every five years and a yearly INFLUENZAVACCINATION (FLU-SHOT) every . Ask your doctor about this. If you had an X-ray, a radiologist will review it. You will be notified of any new findings that may affect your care.] Get Prompt Medical Attention if any of the following occur: Fever over 100.4F (38.0C) for more than three days Trouble breathing, wheezing or pain with breathing Coughing up blood or increased amounts of colored sputum Weakness, drowsiness, headache, facial pain, ear pain or a stiff neck Fever Control (Adult) A fever is a natural reaction of the body to an illness. In most cases, the temperature itself is not harmful. It actually helps the body fight infections. A fever does not need to be treated unless you feel very uncomfortable. Home Care If you feel warm, check your temperature. If you feel very uncomfortable and your temperature is at or higher than 100.4F (38C) oral, you may take acetaminophen (Tylenol) every 4 to 6 hours. If you cant take or keep down oral medicine, ask your pharmacist for Tylenol suppositories, which you can get without a prescription. If the fever does not respond to acetaminophen within 1 hour, take ibuprofen (Advil or Motrin). If this works, keep taking the ibuprofen every 6 to 8 hours. Note: If you have chronic liver or kidney disease or ever had a stomach ulcer or GI bleeding, talk with your doctor before using these medications. If either medication alone does not keep the fever down, you may alternate the two medicines every 3 to 4 hours, only if your healthcare provider has instructed you to do so. For example, take Motrin then wait 3 hours, take Tylenol then wait 3 hours, take Motrin, and so on. Follow your healthcare providers instructions exactly. Clothing: Keep clothing light because excess body heat is lost through the skin. The fever will go up if you wear extra layers or wrap in blankets. Fluids: Fever causes the body to lose water through evaporation. Drink plenty of fluids such as water, juice, clear sodas, jenny quirino, or lemonade. Do not use aspirin in anyone under 18 years of age who is ill with a fever. It can cause severe liver damage. Follow Up with your doctor or as advised by our staff if you do not get better after 48 hours. Get Prompt Medical Attention if any of the following occur: Fever does not get better after taking fever medication Fast or difficult breathing Earache, sinus pain, stiff or painful neck, headache, repeated diarrhea or vomiting You feel unusually irritable, drowsy, or confused A rash appears You feel weak or dizzy, or that you might faint You have been given the following additional information: Bronchitis, Antiobiotic Treatment (Adult) Fever Control (Adult) (Electronically signed by Dianna Pickett A.R.N.P. 09/09/2016 20:52)
--- NOTE | 2016-09-09 20:53 | ED MED RECONCILIATION SUMMARY ---
Patient: GIRMA ASTORGA Medication Reconciliation Report [facility] VisitID: [id number] [address] [place] [address] 26y, M Registration Date/Time: 09/09/2016 Weight: 65.7 kg Height/Length: 66 in. BMI: 23.4 ALLERGIES: No Known Drug Allergy The patient's Home Medications are listed below: THE FOLLOWING MEDICATIONS NEED TO BE RECONCILED: Albuterol Sulfate Inhalation Antibiotic Ibuprofen Oral The source(s) of the original Home Medication information: Not obtained. The following Medications were given to the patient in the Emergency Department: ALBUTEROL NEB W ATROVENT Neb [place] 1 unit dose, administered: 09/09/2016 7:38:00 PM The following Medications were prescribed to the patient: None.
== END 2016-09-09 20:29 | disposition home or self-care (01) ==
LOC: ED SRH 18:28
DX: J20.9 Acute bronchitis, unspecified (principal); Z87.891 Personal history of nicotine dependence

== ENCOUNTER 2016-09-16 02:21 | Emergency (ER) | payer SELFPAY ==
--- NOTE | 2016-09-16 03:06 | ED ORDER SUMMARY ---
..... Patient: GIRMA ASTORGA OrderSheet [facility] VisitID: [id number] [address] [place] [address] 26y, M Registration Date/Time: 09/16/2016 ORDER SHEET Weight: 65.7 kg (stated) Allergies: No Known Drug Allergy GENERAL ORDERS: Chest 2V Urgent (02:36 09/16/2016 Mal AVELAR) (Ack 2:38 AMcQuoid ER Tech1) (3:01 Kieran) MEDICATION ORDERS: Albuterol Neb Tx 2.5 mg (HHN) (pre-and post peak flows.) (02:36 09/16/2016 Mal AVELAR) (3:30 Connie Ng.NEugenia) IV FLUIDS: ORDER SHEET NOTES: [Electronically signed by Belkis Phan R.N. (03:37 09/16/2016)] [Electronically signed by Guido Schultz MD (00:14 09/17/2016)] [Electronically locked/signed by Belkis Phan R.N. (03:37 09/16/2016)]
--- NOTE | 2016-09-16 03:06 | ED CLINICAL REPORT ---
Clinical Report - Physicians/Mid Levels [facility] [address] [place] [address] 09/16/2016 2:21 Patient: GIRMA ASTORGA Time Seen: 02:35 Sep 16 2016. Arrived- By private vehicle. Historian- patient. CPT: ER phys charges level 3 (#[id number]). HISTORY OF PRESENT ILLNESS Chief Complaint: COUGH. 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 The illness is described as moderate. The patient has had a cough. He has had moderate amounts of thick, white sputum. There has been a change from baseline. No fever, muscle aches, chills, sore throat or hoarseness. No nasal congestion or discharge, sinus pressure, sinus drainage or ear pain. Additional history - No known contact with a sick individual. (Finished antibiotics 2 days ago. Did better until today.). Similar symptoms previously: None. Recent medical care: The patient was seen recently at another facility in a clinic. Evaluation/treatment: antibiotic prescribed. Diagnosis: bronchitis. REVIEW OF SYSTEMS The patient has had a headache. No eye discomfort, nausea, vomiting, diarrhea or abdominal pain. No hay fever, pedal edema, calf pain, difficulty with urination or skin rash. No enlarged lymph nodes or joint pain. All systems otherwise negative, except as recorded above. PAST HISTORY Head Injury. Headache. Bronchitis. No history of asthma, chronic obstructive pulmonary disease or pneumonia. Additional Surgeries: no known surgeries. Medications: Albuterol Sulfate Inhalation. Allergies: No Known Drug Allergy. SOCIAL HISTORY Never smoker. History of heavy drug use: heroin. No alcohol use. ADDITIONAL NOTES The nursing notes have been reviewed. PHYSICAL EXAM Vital Signs: 09/16/2016 02:29 BP: 115/84. HR: 82. RR: 18. O2 saturation: 100%. Temp: 97.6 F. Pain level now: 3/10. Appearance: Alert. No acute distress. Anxious. Eyes: Pupils equal, round and reactive to light. Eyes normal inspection. ENT: Ears normal. Nose normal. Pharynx normal. Uvula midline. Neck: Normal inspection. Neck supple. CVS: Normal heart rate and rhythm. Heart sounds normal. Pulses normal. Respiratory: No respiratory distress. Breath sounds normal. Abdomen: Soft and nontender. Back: Normal inspection. Skin: Skin warm. Normal skin color. No rash. Extremities: Extremities exhibit normal ROM. No lower extremity edema. Neuro: Oriented X 3. No motor deficit. No sensory deficit. Reflexes normal. LABS, X-RAYS, AND EKG Chest X-ray: Normal Chest X-Ray. PROGRESS AND PROCEDURES Course of Care: Albuterol HHN Peak, tpp=817 and unchanged post. Patient/family counseled. Disposition: Discharged. Condition: stable. CLINICAL IMPRESSION Residual airway irritation from prior bronchitis. INSTRUCTIONS No strenuous activity. Rest. Drink plenty of fluids. (Continue albuterol). Warnings: Further evaluation is necessary. GENERAL WARNINGS: Return or contact your physician immediately if your condition worsens or changes unexpectedly, if not improving as expected, or if other problems arise. Your Current Medications: CONTINUE TAKING THE FOLLOWING MEDICATIONS: Albuterol Sulfate Inhalation. Prescription Medications: Prednisone 60 mg a day for 3 days. Follow-up: Follow up with your doctor in one week. Call for an appointment. Understanding of the discharge instructions verbalized by patient. (Electronically signed by Guido Schultz MD 09/17/2016 0:14)
--- NOTE | 2016-09-16 03:06 | ED NURSING NOTES ---
Clinical Report - Nurses [facility] [address] [place] [address] 09/16/2016 2:21 Patient: GIRMA ASTORGA TRIAGE Triage time 02:29. Acuity: LEVEL 4. Chief Complaint: COUGH. --02:34 Belkis Phan R.N. 02:29 09/16/16. BP: 115/84. HR: 82 (regular and normal rate). RR: 18. O2 saturation: 100% on room air. Temp: 97.6 F. Pain level now: 07/21. --02:34 Belkis Phan R.N. Weight: 65.7 kg stated. Height/Length: 66 inches Per Patient. BMI: 23.4. --02:33 Belkis Phan R.N. Medications Albuterol Sulfate Inhalation. --02:30 Belkis Phan R.N. Allergies No Known Drug Allergy. --02:30 Belkis Phan R.N. History Arrived by private vehicle. Historian: patient. Primary physician (none). Started while coughing (1 weeks ago). ( reports SOB used inhaler prior to arrival). 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 PAST MEDICAL HX: Immunizations: up-to-date. SOCIAL HX: Never smoker. History of heavy drug use: heroin. Recently used drugs just prior to arrival. Under influence in ED. No alcohol use. SELF HARM ASSESSMENT: A self harm assessment was performed. The patient answered "no" to the question "Have you recently felt down, depressed, or hopeless?", "Have you noticed less interest or pleasure in doing things?", "Do you have thoughts of harming or killing yourself?", "Are you here because you tried to hurt yourself?", "Have you ever tried to hurt yourself before today?", "Have you recently had thoughts about harming or killing others?" and "Do you have any dangerous items in your possession?". --02:34 Belkis Phan R.N. PROBLEMS: Head Injury. Headache. Bronchitis. --02:30 Belkis Phan R.N. ADDITIONAL SURGERIES: no known surgeries. Interventions ID band on patient. --02:34 Belkis Phan R.N. PHYSICAL ASSESSMENT Ambulatory to room. GENERAL / NEURO / PSYCH: Alert. Oriented X 4. Appears in no acute distress. HEENT: Pupils equal, round and reactive to light. Mouth within normal limits upon inspection. Pharynx within normal limits. Voice within normal limits. Mucous membranes are pink. RESPIRATORY: Respirations not labored. Breath sounds within normal limits. CVS: Normal sinus rhythm noted. Capillary refill less than 2 seconds. SKIN: Skin is warm and dry. Normal skin turgor. --02:35 Belkis Phan R.N. NURSING PROGRESS NOTES Two patient identifiers checked. Call light placed in reach. Side rails up x 1. Bed placed in lowest position. Brakes of bed on. --02:35 Belkis Phan R.N. Patient ready for evaluation- chart flagged. --02:35 Belkis Phan R.N. 03:00 09/16/2016 Albuterol Neb TX Nebulizer 2.5 mg given. Given by the respiratory therapist. Allergies verified and confirmed 5 rights. --03:30 Belkis Phan R.N. 03:03 09/16/2016 Albuterol Neb TX discontinued due to improvement in patient condition. --03:31 Belkis Phan R.N. DISPOSITION / DISCHARGE Departure time: 0330. Condition at departure: improved. No learning barriers present. Discharge instructions provided and reviewed with the patient. Reviewed medication(s) side effects, precautions, dosing and course information. Prescription(s) given to the patient. Work note given. Patient verbalized understanding. Written instructions provided in Korean. The patient was discharged home and unaccompanied at time of discharge. He left the Emergency Department ambulatory and via private vehicle. Patient driving. --03:37 Belkis Phan R.N. 03:35 09/16/16. BP: 111/79 taken on the left arm, while lying. HR: 87 (regular and normal rate). RR: 18. O2 saturation: 96% on room air. Temp: deferred. Pain level now: 0/10. --03:37 Belkis Phan R.N. Locked/Released at 09/16/2016 3:37 by Belkis Phan R.N.
--- NOTE | 2016-09-16 03:06 | ED CLINICAL REPORT ---
Clinical Report - Physicians/Mid Levels [facility] [address] [place] [address] 09/16/2016 2:21 Patient: GIRMA ASTORGA Time Seen: 02:35 Sep 16 2016. Arrived- By private vehicle. Historian- patient. CPT: ER phys charges level 3 (#[id number]). 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 The illness is described as moderate. The patient has had a cough. He has had moderate amounts of thick, white sputum. There has been a change from baseline. No fever, muscle aches, chills, sore throat or hoarseness. No nasal congestion or discharge, sinus pressure, sinus drainage or ear pain. Additional history - No known contact with a sick individual. (Finished antibiotics 2 days ago. Did better until today.). Similar symptoms previously: None. Recent medical care: The patient was seen recently at another facility in a clinic. Evaluation/treatment: antibiotic prescribed. Diagnosis: bronchitis. REVIEW OF SYSTEMS The patient has had a headache. No eye discomfort, nausea, vomiting, diarrhea or abdominal pain. No hay fever, pedal edema, calf pain, difficulty with urination or skin rash. No enlarged lymph nodes or joint pain. All systems otherwise negative, except as recorded above. PAST HISTORY Head Injury. Headache. Bronchitis. No history of asthma, chronic obstructive pulmonary disease or pneumonia. Additional Surgeries: no known surgeries. Medications: Albuterol Sulfate Inhalation. Allergies: No Known Drug Allergy. SOCIAL HISTORY Never smoker. History of heavy drug use: heroin. No alcohol use. ADDITIONAL NOTES The nursing notes have been reviewed. PHYSICAL EXAM Vital Signs: 09/16/2016 02:29 BP: 115/84. HR: 82. RR: 18. O2 saturation: 100%. Temp: 97.6 F. Pain level now: 3/10. Appearance: Alert. No acute distress. Anxious. Eyes: Pupils equal, round and reactive to light. Eyes normal inspection. ENT: Ears normal. Nose normal. Pharynx normal. Uvula midline. Neck: Normal inspection. Neck supple. CVS: Normal heart rate and rhythm. Heart sounds normal. Pulses normal. Respiratory: No respiratory distress. Breath sounds normal. Abdomen: Soft and nontender. Back: Normal inspection. Skin: Skin warm. Normal skin color. No rash. Extremities: Extremities exhibit normal ROM. No lower extremity edema. Neuro: Oriented X 3. No motor deficit. No sensory deficit. Reflexes normal. LABS, X-RAYS, AND EKG Chest X-ray: Normal Chest X-Ray. PROGRESS AND PROCEDURES Course of Care: Albuterol HHN Peak, btc=362 and unchanged post. Patient/family counseled. Disposition: Discharged. Condition: stable. CLINICAL IMPRESSION Residual airway irritation from prior bronchitis. INSTRUCTIONS No strenuous activity. Rest. Drink plenty of fluids. (Continue albuterol). Warnings: Further evaluation is necessary. GENERAL WARNINGS: Return or contact your physician immediately if your condition worsens or changes unexpectedly, if not improving as expected, or if other problems arise. Your Current Medications: CONTINUE TAKING THE FOLLOWING MEDICATIONS: Albuterol Sulfate Inhalation. Prescription Medications: Prednisone 60 mg a day for 3 days. Follow-up: Follow up with your doctor in one week. Call for an appointment. Understanding of the discharge instructions verbalized by patient. (Electronically signed by Guido Schultz MD 09/17/2016 0:14)
--- NOTE | 2016-09-16 03:06 | ED ORDER SUMMARY ---
..... Patient: GIRMA ASTORGA OrderSheet [facility] VisitID: [id number] [address] [place] [address] 26y, M Registration Date/Time: 09/16/2016 ORDER SHEET Weight: 65.7 kg (stated) Allergies: No Known Drug Allergy GENERAL ORDERS: Chest 2V Urgent (02:36 09/16/2016 Mal AVELAR) (Ack 2:38 AMcQuoid ER Tech1) (3:01 Kieran) MEDICATION ORDERS: Albuterol Neb Tx 2.5 mg (HHN) (pre-and post peak flows.) (02:36 09/16/2016 Mal AVELAR) (3:30 Connie Ng.NEugenia) IV FLUIDS: ORDER SHEET NOTES: [Electronically signed by Belkis Phan R.N. (03:37 09/16/2016)] [Electronically signed by Guido Schultz MD (00:14 09/17/2016)] [Electronically locked/signed by Belkis Phan R.N. (03:37 09/16/2016)]
--- NOTE | 2016-09-16 03:06 | ED NURSING NOTES ---
Clinical Report - Nurses [facility] [address] [place] [address] 09/16/2016 2:21 Patient: GIRMA ASTORGA TRIAGE Triage time 02:29. Acuity: LEVEL 4. Chief Complaint: COUGH. --02:34 Belkis Phan R.N. 02:29 09/16/16. BP: 115/84. HR: 82 (regular and normal rate). RR: 18. O2 saturation: 100% on room air. Temp: 97.6 F. Pain level now: 07/21. --02:34 Belkis Phan R.N. Weight: 65.7 kg stated. Height/Length: 66 inches Per Patient. BMI: 23.4. --02:33 Belkis Phan R.N. Medications Albuterol Sulfate Inhalation. --02:30 Belkis Phan R.N. Allergies No Known Drug Allergy. --02:30 Belkis Phan R.N. History Arrived by private vehicle. Historian: patient. Primary physician (none). Started while coughing (1 weeks ago). ( reports SOB used inhaler prior to arrival). 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 PAST MEDICAL HX: Immunizations: up-to-date. SOCIAL HX: Never smoker. History of heavy drug use: heroin. Recently used drugs just prior to arrival. Under influence in ED. No alcohol use. SELF HARM ASSESSMENT: A self harm assessment was performed. The patient answered "no" to the question "Have you recently felt down, depressed, or hopeless?", "Have you noticed less interest or pleasure in doing things?", "Do you have thoughts of harming or killing yourself?", "Are you here because you tried to hurt yourself?", "Have you ever tried to hurt yourself before today?", "Have you recently had thoughts about harming or killing others?" and "Do you have any dangerous items in your possession?". --02:34 Belkis Phan R.N. PROBLEMS: Head Injury. Headache. Bronchitis. --02:30 Belkis Phan R.N. ADDITIONAL SURGERIES: no known surgeries. Interventions ID band on patient. --02:34 Belkis Phan R.N. PHYSICAL ASSESSMENT Ambulatory to room. GENERAL / NEURO / PSYCH: Alert. Oriented X 4. Appears in no acute distress. HEENT: Pupils equal, round and reactive to light. Mouth within normal limits upon inspection. Pharynx within normal limits. Voice within normal limits. Mucous membranes are pink. RESPIRATORY: Respirations not labored. Breath sounds within normal limits. CVS: Normal sinus rhythm noted. Capillary refill less than 2 seconds. SKIN: Skin is warm and dry. Normal skin turgor. --02:35 Belkis Phan R.N. NURSING PROGRESS NOTES Two patient identifiers checked. Call light placed in reach. Side rails up x 1. Bed placed in lowest position. Brakes of bed on. --02:35 Belkis Phan R.N. Patient ready for evaluation- chart flagged. --02:35 Belkis Phan R.N. 03:00 09/16/2016 Albuterol Neb TX Nebulizer 2.5 mg given. Given by the respiratory therapist. Allergies verified and confirmed 5 rights. --03:30 Belkis Phan R.N. 03:03 09/16/2016 Albuterol Neb TX discontinued due to improvement in patient condition. --03:31 Belkis Phan R.N. DISPOSITION / DISCHARGE Departure time: 0330. Condition at departure: improved. No learning barriers present. Discharge instructions provided and reviewed with the patient. Reviewed medication(s) side effects, precautions, dosing and course information. Prescription(s) given to the patient. Work note given. Patient verbalized understanding. Written instructions provided in Urdu. The patient was discharged home and unaccompanied at time of discharge. He left the Emergency Department ambulatory and via private vehicle. Patient driving. --03:37 Belkis Phan R.N. 03:35 09/16/16. BP: 111/79 taken on the left arm, while lying. HR: 87 (regular and normal rate). RR: 18. O2 saturation: 96% on room air. Temp: deferred. Pain level now: 0/10. --03:37 Belkis Phan R.N. Locked/Released at 09/16/2016 3:37 by Belkis Phan R.N.
--- NOTE | 2016-09-16 06:42 | DIAGNOSTIC IMAGING REPORT ---
PROCEDURE: XR CHEST 2 VIEW INDICATION: SHORTNESS OF BREATH TECHNIQUE: PA and lateral view. COMPARISON: Chest x-ray 09/08/2016 FINDINGS: Lungs are clear. Cardiovascular structures are normal. Bony thorax is unremarkable. IMPRESSION: 1. Negative chest.
--- NOTE | 2016-09-17 00:14 | ED DISCHARGE INSTRUCTIONS ---
Patient: GIRMA ASTORGA General Instructions [facility] VisitID: [id number] [address] [place] [address] 26y, M Registration Date/Time: 09/16/2016 Residual airway irritation from prior bronchitis. INSTRUCTIONS No strenuous activity. Rest. Drink plenty of fluids. (Continue albuterol). Warnings: Further evaluation is necessary. GENERAL WARNINGS: Return or contact your physician immediately if your condition worsens or changes unexpectedly, if not improving as expected, or if other problems arise. Your Current Medications: CONTINUE TAKING THE FOLLOWING MEDICATIONS: Albuterol Sulfate Inhalation. Prescription Medications: Prednisone 60 mg a day for 3 days. Follow-up: Follow up with your doctor in one week. Call for an appointment. Understanding of the discharge instructions verbalized by patient. No strenuous activity. Rest. (Electronically signed by Guido Schultz MD 09/17/2016 0:14)
--- NOTE | 2016-09-17 00:14 | ED DISCHARGE INSTRUCTIONS ---
Patient: GIRMA ASTORGA General Instructions VisitID: [id number] [address] [place] [address] 26y, M Registration Date/Time: 09/16/2016 Residual airway irritation from prior bronchitis. INSTRUCTIONS No strenuous activity. Rest. Drink plenty of fluids. (Continue albuterol). Warnings: Further evaluation is necessary. GENERAL WARNINGS: Return or contact your physician immediately if your condition worsens or changes unexpectedly, if not improving as expected, or if other problems arise. Your Current Medications: CONTINUE TAKING THE FOLLOWING MEDICATIONS: Albuterol Sulfate Inhalation. Prescription Medications: Prednisone 60 mg a day for 3 days. Follow-up: Follow up with your doctor in one week. Call for an appointment. Understanding of the discharge instructions verbalized by patient. No strenuous activity. Rest. (Electronically signed by Guido Schultz MD 09/17/2016 0:14)
--- NOTE | 2016-09-17 00:15 | ED MAR SUMMARY ---
..... Medication Administration Record [facility] [address] [place] [address] Patient: GIRMA ASTORGA Visit ID: [id number] 26y, M Weight: 65.7 kg Height/Length: 66 in BMI: 23.4 ALLERGIES: No Known Drug Allergy Given 03:00 09/16/2016 Belkis Phan R.N., Stop 03:03 09/16/2016 Belkis Phan R.N. Medication Administered: ALBUTEROL [NEB TX], Dose: 2.5 mg Nebulizer Neb TX. Medication Ordered: Albuterol Neb Tx 2.5 mg (N) (pre-and post peak flows.).
--- NOTE | 2016-09-17 00:15 | ED MAR SUMMARY ---
..... Medication Administration Record [facility] [address] [place] [address] Patient: GIRMA ASTORGA Visit ID: [id number] 26y, M Weight: 65.7 kg Height/Length: 66 in BMI: 23.4 ALLERGIES: No Known Drug Allergy Given 03:00 09/16/2016 Belkis Phan R.N., Stop 03:03 09/16/2016 Belkis Phan R.N. Medication Administered: ALBUTEROL [NEB TX], Dose: 2.5 mg Nebulizer Neb TX. Medication Ordered: Albuterol Neb Tx 2.5 mg (N) (pre-and post peak flows.).
--- NOTE | 2016-09-17 00:15 | ED MED RECONCILIATION SUMMARY ---
Patient: GIRMA ASTORGA Medication Reconciliation Report [facility] VisitID: [id number] [address] [place] [address] 26y, M Registration Date/Time: 09/16/2016 Weight: 65.7 kg Height/Length: 66 in. BMI: 23.4 ALLERGIES: No Known Drug Allergy The patient's Home Medications are listed below: CONTINUE TAKING THE FOLLOWING MEDICATIONS: Albuterol Sulfate Inhalation The source(s) of the original Home Medication information: Not obtained. The following Medications were given to the patient in the Emergency Department: Albuterol [Neb Tx] Neb TX 2.5 mg, administered: 09/16/2016 3:00:00 AM The following Medications were prescribed to the patient: Prednisone 60 mg a day for 3 days. -- Guido Schultz MD
--- NOTE | 2016-09-17 00:15 | ED MED RECONCILIATION SUMMARY ---
Patient: GIRMA ASTORGA Medication Reconciliation Report [facility] VisitID: [id number] [address] [place] [address] 26y, M Registration Date/Time: 09/16/2016 Weight: 65.7 kg Height/Length: 66 in. BMI: 23.4 ALLERGIES: No Known Drug Allergy The patient's Home Medications are listed below: CONTINUE TAKING THE FOLLOWING MEDICATIONS: Albuterol Sulfate Inhalation The source(s) of the original Home Medication information: Not obtained. The following Medications were given to the patient in the Emergency Department: Albuterol [Neb Tx] Neb TX 2.5 mg, administered: 09/16/2016 3:00:00 AM The following Medications were prescribed to the patient: Prednisone 60 mg a day for 3 days. -- Guido Schultz MD
== END 2016-09-16 03:30 | disposition home or self-care (01) ==
LOC: ED SRH 02:21
DX: J98.8 Other specified respiratory disorders (principal); Z79.899 Other long term (current) drug therapy
CPT/HCPCS: 82623

== ENCOUNTER 2016-10-16 05:46 | Emergency (ER) | payer SELFPAY ==
--- NOTE | 2016-10-16 06:54 | ED ORDER SUMMARY ---
..... Patient: GIRMA ASTORGA OrderSheet [facility] VisitID: [id number] [address] [place] [address] 26y, M Registration Date/Time: 10/16/2016 ORDER SHEET Weight: 65.7 kg (stated) Allergies: No Known Drug Allergy GENERAL ORDERS: Wound Irrigation (06:04 10/16/2016 Maite Felton verbal order read back to Ishaan Coates) (6:04 Maite R.NEugenia) MEDICATION ORDERS: Tdap IM 0.5 mL (NOW, per protocol) (05:56 10/16/2016 HSoule per protocol) (5:58 HSoule) IV FLUIDS: ORDER SHEET NOTES: [Electronically signed by Keith Pak Dr. (07:34 10/16/2016)] [Electronically signed by Edilson Cardenas R.N. (07:54 10/16/2016)] [Electronically locked/signed by Edilson Cardenas R.N. (07:54 10/16/2016)]
--- NOTE | 2016-10-16 06:54 | ED ORDER SUMMARY ---
..... Patient: GIRMA ASTORGA OrderSheet [facility] VisitID: [id number] [address] [place] [address] 26y, M Registration Date/Time: 10/16/2016 ORDER SHEET Weight: 65.7 kg (stated) Allergies: No Known Drug Allergy GENERAL ORDERS: Wound Irrigation (06:04 10/16/2016 Maite Felton verbal order read back to Ishaan Coates) (6:04 Maite R.NEugenia) MEDICATION ORDERS: Tdap IM 0.5 mL (NOW, per protocol) (05:56 10/16/2016 HSoule per protocol) (5:58 HSoule) IV FLUIDS: ORDER SHEET NOTES: [Electronically signed by Keith Pak Dr. (07:34 10/16/2016)] [Electronically signed by Edilson Cardenas R.N. (07:54 10/16/2016)] [Electronically locked/signed by Edilson Cardenas R.N. (07:54 10/16/2016)]
--- NOTE | 2016-10-16 06:54 | ED CLINICAL REPORT ---
Clinical Report - Physicians/Mid Levels [facility] [address] [place] [address] 10/16/2016 5:46 Patient: GIRMA ASTORGA Time Seen: 05:54; initial patient contact. Arrived- By private vehicle. Historian- patient. HISTORY OF PRESENT ILLNESS Chief Complaint: Injury to the right ring finger. The injury happened just prior to arrival. Occurred at home. The patient sustained a laceration from a knife. Patient is experiencing mild pain. Patient denies injury to the head or neck. REVIEW OF SYSTEMS The patient sustained a laceration. No tingling, numbness or foreign body. All systems otherwise negative, except as recorded above. PAST HISTORY Head Injury. Headache. Bronchitis. The patient's dominant hand is the right. Last tetanus immunization was more than 5 years ago. SOCIAL HISTORY Never smoker. History of drug use: heroin. ADDITIONAL NOTES The nursing notes have been reviewed. PHYSICAL EXAM Vital Signs: 10/16/2016 05:51 BP: 121/79. HR: 80. RR: 16. O2 saturation: 95%. Temp: 98.1 F. Pain level now: 0/10. Have been reviewed as normal. Appearance: Alert. Oriented X3. No acute distress. Skin: Skin warm and dry. Extremities: Right index finger: subcutaneous 2.5 cm laceration of the volar aspect. Neurovascular intact distally. No limitation in movement. Hand and wrist exam otherwise negative. Extremities otherwise negative. Neuro, Vascular and Tendons: Vascular status intact. Sensation intact. Motor intact. Tendon function intact. Neuro: Oriented X 3. No motor deficit. No sensory deficit. PROGRESS AND PROCEDURES Digital Nerve Block - Finger: Per protocol, time-out completed immediately before the procedure. Digital nerve block performed on the right index finger. Volar approach utilized. Landmarks identified. Skin prepped. Total volume of 3 mL 0.5% Marcaine infiltrated via a single puncture using a 27-gauge needle. Patient cooperative during procedure. No complications encountered. Excellent anesthesia achieved. Laceration Repair: Location: right index finger. Per protocol, time-out completed immediately before the procedure. Length: 2.5 cm. Complexity: simple (sutured). Wound depth/shape- subcutaneous and linear. Wound is clean. Distal neuro/vascular/tendon status normal. Anesthesia provided by digital block using 0.50% Marcaine (3 mL). Prepped with Hibiclens. Wound explored, irrigated and examined to the base in bloodless field with normal saline. Closure of skin: interrupted 4-0 Prolene (4 sutures). Post-procedure: he is stable and there are no complications. Bleeding is controlled and neuro-vascular status is intact distal to the wound. Dressing applied. Tetanus immunization given. Estimated blood loss: 2 mL. Disposition: Discharged to work in good and improved condition. Condition: good. CLINICAL IMPRESSION Single deep laceration to the right index finger.Treatment of laceration not delayed. No infection, foreign body present or right fingernail injury. INSTRUCTIONS Protect wound and keep wound area clean. Change dressing twice daily. You may wash wounds briefly, then dry. Apply bacitracin twice daily. Sutures/micheal should be removed in seven days. Follow-up: Follow up with your doctor in seven days for suture removal. Call for an appointment. Screening today revealed the patient's blood pressure to be in the pre-hypertensive range. The patient should follow up with a primary care provider for blood pressure management. (Electronically signed by Keith Pak Dr. 10/16/2016 7:34)
--- NOTE | 2016-10-16 06:54 | ED NURSING NOTES ---
Clinical Report - Nurses [facility] [place] [address] 10/16/2016 5:46 Patient: GIRMA ASTORGA TRIAGE Triage time 05:50 Marco A 2016. Acuity: LEVEL 3. Chief Complaint: LACERATION. Alert. LUIS COMA SCORE: Luis Coma Scale: 15- eyes open spontaneously (4); best verbal response- oriented x 4 (5); best motor response- obeys commands (6). --05:59 Edilson Cardenas R.N. 05:51 10/16/16. BP: 121/79. HR: 80. RR: 16. O2 saturation: 95%. Temp: 98.1 F. Pain level now: 0/10. --05:59 Edilson Cardenas R.N. Weight: 65.7 kg stated. Height/Length: 65 inches Per Patient. BMI: 24.1. --05:55 Edilson Cardenas R.N. Medications None. --05:56 Edilson Cardenas R.N. Allergies No Known Drug Allergy. --05:56 Edilson Cardenas R.N. History Arrived by private vehicle. Historian: patient. Unaccompanied. ( Laceration (R) Index finger. Pt states that he was making a new holde in his shoe and his knife closed on him cutting the tip of the finger.). Location of injuries: tip of right index finger. This occurred (about 1 1/2 ago). Trauma activation: Pre-hospital notification of patient arrival was not received. PAST MEDICAL HX: Tetanus status: unknown. Immunizations: status is unknown. SURGERY HX: No history of previous surgery. SOCIAL HX: Former smoker, end date 2014. No alcohol use or drug use. No infectious disease exposure. ABUSE ASSESSMENT: No report of abuse. FALL RISK ASSESSMENT: Fall risk assessment completed. No fall risk identified. NUTRITIONAL RISK ASSESSMENT: The nutritional risk assessment revealed no deficiencies. FUNCTIONAL ASSESSMENT: Functional assessment: no impairments noted. LEARNING NEEDS ASSESSMENT: The learning needs assessment revealed no barriers. SKIN INTEGRITY ASSESSMENT: Skin integrity risk assessment completed. No skin integrity risk identified. --05:59 Edilson Carednas R.N. PROBLEMS: Head Injury. Headache. Bronchitis. --05:58 Edilson Cardenas R.N. Interventions ID band on patient. To treatment room. --05:59 Edilson Cardenas R.N. PHYSICAL ASSESSMENT Ambulatory to room. GENERAL / NEURO / PSYCH: Alert. Oriented X 4. HEENT: Head non-tender. RESPIRATORY: Respirations not labored. ( cough from previous bronchitis episode). CVS: Pulses within normal limits. Capillary refill less than 2 seconds. GI / : Abdomen soft. EXTREMITIES: Extremities exhibit normal ROM. Neuro-vascular status intact to the extremity. SKIN: Skin is warm and dry. ( laceration tip of (R) Index finger). --06:07 Edilson Cardenas R.N. NURSING PROGRESS NOTES 05:58 10/16/2016 TDAP IM 0.5 mL given. (Lot#: [id number], expiration date: 09/21/2018, [employer]: sanofi pasteur). Given in the left deltoid. Allergies verified and confirmed 5 rights. Vaccine information statement provided to the patient. --05:58 Kenia Pate Reassurance given to the patient. Patient identifiers checked. Call light placed in reach. Side rails up x 1. Bed placed in lowest position. Brakes of bed on. Patient ready for evaluation- chart flagged and ED physician notified. --06:01 Edilson Cardenas R.N. 06:00 10/16/16. ( Pt given a Chlorhexadine scrubby sponge and a basin of warm water and encouraged to clean the wound and hand.). --06:02 Edilson Cardenas R.N. 06:45. WOUND REPAIR: Wound repair performed by ED physician. Assisted by one nurse. The wound is located on the right index finger ((R) Index finger). The wound is linear. Preparation: suture tray set-up with 1% lidocaine. Wound cleansed per nurse with sterile saline and chlorhexidine. Procedure: wound repaired with sutures. Post-procedure: he was stable, no complications, bleeding controlled and neuro-vascular status intact distal to wound. Estimated blood loss: tube gauze used. Total time of assist / procedure: 15 minutes. Applied dressing, following the application of antibiotic ointment (bacitracin). Secured with tube gauze. --07:46 Edilson Cardenas R.N. 06:45. ( ONE PKT OF SUTURES USED TO CLOSE WOUND.). --07:53 Edilson Cardenas R.N. DISPOSITION / DISCHARGE 06:55 10/16/16. BP: 126/72. HR: 82. RR: 16. O2 saturation: 99% on room air. Temp: 98.6 F (oral). --07:50 Edilson Cardenas R.N. 06:55 10/16/16. Pain level now: 06/23. --07:50 Edilson Cardenas R.N. Departure time: 0700. --07:51 Edilson Cardenas R.N. 07:00. No learning barriers present. Discharge instructions provided and reviewed with the patient. Reviewed wound care instructions. Reviewed referral to family practice. Patient verbalized understanding. Written instructions provided in Surinamese. The patient was discharged by the physician. He was discharged home and unaccompanied at time of discharge. He left the Emergency Department ambulatory and via private vehicle. Patient driving. --07:52 Edilson Cardenas R.N. Locked/Released at 10/16/2016 7:54 by Edilson Cardenas R.N.
--- NOTE | 2016-10-16 07:54 | ED MED RECONCILIATION SUMMARY ---
Patient: GIRMA ASTORGA Medication Reconciliation Report [facility] VisitID: [id number] [address] [place] [address] 26y, M Registration Date/Time: 10/16/2016 Weight: 65.7 kg Height/Length: 65 in. BMI: 24.1 ALLERGIES: No Known Drug Allergy The patient's Home Medications are listed below: NONE. The source(s) of the original Home Medication information: Not obtained. The following Medications were given to the patient in the Emergency Department: TDAP [IM] IM 0.5 mL, administered: 10/16/2016 5:58:00 AM The following Medications were prescribed to the patient: None.
--- NOTE | 2016-10-16 07:54 | ED DISCHARGE INSTRUCTIONS ---
Patient: GIRMA ASTORGA General Instructions [facility] VisitID: [id number] [place] [address] 26y, M Registration Date/Time: 10/16/2016 Single deep laceration to the right index finger.Treatment of laceration not delayed. No infection, foreign body present or right fingernail injury. INSTRUCTIONS Protect wound and keep wound area clean. Change dressing twice daily. You may wash wounds briefly, then dry. Apply bacitracin twice daily. Sutures/micheal should be removed in seven days. Follow-up: Follow up with your doctor in seven days for suture removal. Call for an appointment. Screening today revealed the patient's blood pressure to be in the pre-hypertensive range. The patient should follow up with a primary care provider for blood pressure management. ADDITIONAL INFORMATION Laceration (All Closures) Alaceration is a cut through the skin. This will usually require stitches (sutures) or micheal if it is deep. Minor cuts may be treated with a surgical tape closure orskin glue. Home care The following guidelines will help you care for your laceration at home: Extremity, face, or trunk wounds Keep the wound clean and dry. If a bandage was applied and it becomes wet or dirty, replace it. Otherwise, leave it in place for the first 24 hours. If stitches or micheal were used, clean the wound daily. After removing the bandage, wash the area with soap and water. Use a wet cotton swab to loosen and remove any blood or crust that forms. The doctor may prescribe an antibiotic cream or ointment to prevent infection. Do not stop taking this medication until you have finished the prescribed course or the doctor tells you to stop. The doctor may also prescribe medications for pain. Follow the doctors instructions for taking these medications. You may remove the bandage to shower as usual after the first 24 hours, but do not soak the area in water (no swimming) until the stitches or micheal are removed. If surgical tape was used, keep the area clean and dry. If it becomes wet, blot it dry with a towel. If skin glue was used, do not scratch, rub, or pick at the adhesive film. Do not place tape directly over the film. Do not apply liquid, ointment, or creams to the wound while the film is in place. Do not clean the wound with peroxide and do not apply ointments. Avoid activities that cause heavy sweating until the film has fallen off. Protect the wound from prolonged exposure to sunlight or tanning lamps. You may shower as usual but do not soak the wound in water (no baths or swimming). The film will fall off by itself in 510 days. Scalp wounds During the first two days, you may carefully rinse your hair in the shower to remove blood, glass or dirt particles. After two days, you may shower and shampoo your hair normally. Do not soak your scalp in the tub or go swimming until the stitches or micheal have been removed. Talk with your doctor before applying any antibiotic ointment to the wound. Mouth wounds Eat soft foods to reduce pain. If the cut is inside of your mouth, clean by rinsing after each meal and at bedtime with a mixture of equal parts water and hydrogen peroxide (do not swallow!). Or, you can use a cotton swab to directly apply hydrogen peroxide onto the cut. Mouth wounds can be painful when eating. You may use an [id number] local numbing solution for pain relief. If this is not available, you may use any numbing solution for teething babies. You may apply this directly to the sores with a cotton-tip swab or with your finger. Follow-up care Follow up with your health care provider. Most skin wounds heal within ten days. Mouth and facial wounds heal within five days. However, even with proper treatment, a wound infection may sometimes occur. Therefore, you should check the wound daily for signs of infection listed below. Stitches should be removed from the face within five days; stitches and micheal should be removed from other parts of the body within 714 days. If dissolving stitches were used in the mouth, these will fall out or dissolve without the need for removal. If tape closures were used, remove them yourself if they have not fallen off after 7 days. Ifskin glue was used, the film will fall off by itself in 510 days. When to seek medical care Get prompt medical attention if any of these occur: Bleeding not controlled by direct pressure Signs of infection, including increasing pain in the wound, increasing wound redness or swelling, or pus coming from the wound Fever of 100.4F (38C) or higher, or as directed by your health care provider Stitches or micheal come apart or fall out or surgical tape falls off before 7 days Wound edges re-open Bandage Change If the bandage becomes wet or dirty, replace it. Otherwise, leave it in place for the first 24 hours. Then once a day: After removing the bandage, wash the area with soap and water. Use a wet cotton swab to loosen and remove any blood or crust that forms on the wound. After cleaning, apply a thin layer of antibiotic ointment or cream. Reapply the bandage. You may shower as usual after the first 24 hours. If the bandage is on an arm or leg, cover it with a plastic bag rubber banded at both ends before showering. No tub baths or swimming until the bandage is removed and the wound healed (at least 7 days). You have been given the following additional information: Laceration, All Dressing Change (Electronically signed by Keith Pak Dr. 10/16/2016 7:34)
--- NOTE | 2016-10-16 07:54 | ED MAR SUMMARY ---
..... Medication Administration Record [facility] [address] [place] [address] Patient: GIRMA ASTORGA Visit ID: [id number] 26y, M Weight: 65.7 kg Height/Length: 65 in BMI: 24.1 ALLERGIES: No Known Drug Allergy Given 05:58 10/16/2016 Kenia Pate, Medication Administered: TDAP [IM], Dose: 0.5 mL IM. Medication Ordered: Tdap IM 0.5 mL (NOW, per protocol).
--- NOTE | 2016-10-16 07:54 | ED MAR SUMMARY ---
..... Medication Administration Record [facility] [address] [place] [address] Patient: GIRMA ASTORGA Visit ID: [id number] 26y, M Weight: 65.7 kg Height/Length: 65 in BMI: 24.1 ALLERGIES: No Known Drug Allergy Given 05:58 10/16/2016 Kenia Pate, Medication Administered: TDAP [IM], Dose: 0.5 mL IM. Medication Ordered: Tdap IM 0.5 mL (NOW, per protocol).
--- NOTE | 2016-10-16 07:54 | ED MED RECONCILIATION SUMMARY ---
Patient: GIRMA ASTORGA Medication Reconciliation Report [facility] VisitID: [id number] [address] [place] [address] 26y, M Registration Date/Time: 10/16/2016 Weight: 65.7 kg Height/Length: 65 in. BMI: 24.1 ALLERGIES: No Known Drug Allergy The patient's Home Medications are listed below: NONE. The source(s) of the original Home Medication information: Not obtained. The following Medications were given to the patient in the Emergency Department: TDAP [IM] IM 0.5 mL, administered: 10/16/2016 5:58:00 AM The following Medications were prescribed to the patient: None.
== END 2016-10-16 07:00 | disposition home or self-care (01) ==
LOC: ED SRH 05:46
DX: S61.210A Laceration without foreign body of right index finger without damage to nail, initial encounter (principal); W26.0XXA Contact with knife, initial encounter; Y93.9 Activity, unspecified; Y99.9 Unspecified external cause status; Y92.009 Unspecified place in unspecified non-institutional (private) residence as the place of occurrence of the external cause; Z23 Encounter for immunization

== ENCOUNTER 2016-10-18 16:46 | Emergency (ER) | payer SELFPAY ==
--- NOTE | 2016-10-18 17:11 | ED NURSING NOTES ---
Clinical Report - Nurses [facility] [address] [place] [address] 10/18/2016 16:47 Patient: GIRMA ASTORGA TRIAGE Triage time 16:52 Oct 18 2016. Acuity: LEVEL 5. Chief Complaint: MOUTH SORE and (pt reports "lump" on bottom right gum, x 1 week, pt also here for a suture that was placed on sunday night right pointer finger is concerned he may have tore it loose). Alert. No acute distress. SEPSIS SCREEN: Sepsis Screen. Negative (no infection suspected/documented). --16:58 Susan Villafana R.N. 16:52 10/18/16. BP: 117/63. HR: 93. RR: 17. O2 saturation: 98%. Temp: 99.1 F. Pain level now: 12/21. --16:58 Susan Villafana R.N. Weight: 65.7 kg stated. Height/Length: 65 inches Per Patient. BMI: 24.1. --16:54 Susan Villafana R.N. Medications None. --16:54 Susan Villafana R.N. Medication/allergy information source: the patient. --16:58 Susan Villafana R.N. Allergies No Known Drug Allergy. --16:54 Susan Villafana R.N. History Arrived by private vehicle. Historian: patient. Onset. (1 weeks ago). He has no dental appointment scheduled. Treatment [employer]: None. PAST MEDICAL HX: Immunizations: up-to-date. SOCIAL HX: Smoker- current status unknown (chew). No alcohol use or drug use. No infectious disease exposure. ABUSE ASSESSMENT: No report of abuse. SELF HARM ASSESSMENT: A self harm assessment was performed. The patient answered "no" to the question "Do you have thoughts of harming or killing yourself?". FALL RISK ASSESSMENT: Fall risk assessment completed. No fall risk identified. NUTRITIONAL RISK ASSESSMENT: The nutritional risk assessment revealed no deficiencies. FUNCTIONAL ASSESSMENT: Functional assessment: no impairments noted. LEARNING NEEDS ASSESSMENT: The learning needs assessment revealed no barriers. SKIN INTEGRITY ASSESSMENT: Skin integrity risk assessment completed. No skin integrity risk identified. --16:58 Susan Villafana R.N. PROBLEMS: Laceration. Head Injury. Headache. Bronchitis. --16:54 Susan Villafana R.N. ADDITIONAL SURGERIES: no known surgeries. Interventions ID band on patient. To treatment room. --16:58 Susan Villafana R.N. PHYSICAL ASSESSMENT Ambulatory to room. GENERAL / NEURO / PSYCH: Alert. Oriented X 4. Appears in no acute distress. HEENT: Pupils equal, round and reactive to light. Dental decay. RESPIRATORY: Respirations not labored. CVS: Capillary refill less than 2 seconds. SKIN: Skin is warm and dry. Normal skin turgor. --16:59 Susan Villafana R.N. NURSING PROGRESS NOTES Patient identifiers checked. Call light placed in reach. Side rails up x 1. Bed placed in lowest position. Brakes of bed on. Patient ready for evaluation- chart flagged. Patient waiting for evaluation. --16:59 Susan Villafana R.N. DISPOSITION / DISCHARGE No learning barriers present. Discharge instructions provided and reviewed with the patient. Reviewed medication(s) side effects, precautions, dosing and course information. Prescription(s) given to the patient. Patient verbalized understanding. Written instructions provided in Swedish. The patient was discharged by the nurse practitioner. He was discharged home. He left the Emergency Department ambulatory and via private vehicle. --17:44 Susan Villafana R.N. 17:43 10/18/16. BP: 109/64. HR: 86. RR: 15. O2 saturation: 99%. Temp: deferred. Pain level now: 12/21. --17:44 Susan Villafana R.N. Locked/Released at 10/18/2016 17:49 by Susan Villafana R.N.
--- NOTE | 2016-10-18 17:11 | ED NURSING NOTES ---
Clinical Report - Nurses [facility] [address] [place] [address] 10/18/2016 16:47 Patient: GIRMA ASTORGA TRIAGE Triage time 16:52 Oct 18 2016. Acuity: LEVEL 5. Chief Complaint: MOUTH SORE and (pt reports "lump" on bottom right gum, x 1 week, pt also here for a suture that was placed on sunday night right pointer finger is concerned he may have tore it loose). Alert. No acute distress. SEPSIS SCREEN: Sepsis Screen. Negative (no infection suspected/documented). --16:58 Susan Villafana R.N. 16:52 10/18/16. BP: 117/63. HR: 93. RR: 17. O2 saturation: 98%. Temp: 99.1 F. Pain level now: 12/21. --16:58 Susan Villafana R.N. Weight: 65.7 kg stated. Height/Length: 65 inches Per Patient. BMI: 24.1. --16:54 Susan Villafana R.N. Medications None. --16:54 Susan Villafana R.N. Medication/allergy information source: the patient. --16:58 Susan Villafana R.N. Allergies No Known Drug Allergy. --16:54 Susan Villafana R.N. History Arrived by private vehicle. Historian: patient. Onset. (1 weeks ago). He has no dental appointment scheduled. Treatment DOG OR HORSE [employer]AC[employer]ICIAL: None. PAST MEDICAL HX: Immunizations: up-to-date. SOCIAL HX: Smoker- current status unknown (chew). No alcohol use or drug use. No infectious disease exposure. ABUSE ASSESSMENT: No report of abuse. SELF HARM ASSESSMENT: A self harm assessment was performed. The patient answered "no" to the question "Do you have thoughts of harming or killing yourself?". FALL RISK ASSESSMENT: Fall risk assessment completed. No fall risk identified. NUTRITIONAL RISK ASSESSMENT: The nutritional risk assessment revealed no deficiencies. FUNCTIONAL ASSESSMENT: Functional assessment: no impairments noted. LEARNING NEEDS ASSESSMENT: The learning needs assessment revealed no barriers. SKIN INTEGRITY ASSESSMENT: Skin integrity risk assessment completed. No skin integrity risk identified. --16:58 Susan Villafana R.N. PROBLEMS: Laceration. Head Injury. Headache. Bronchitis. --16:54 Susan Villafana R.N. ADDITIONAL SURGERIES: no known surgeries. Interventions ID band on patient. To treatment room. --16:58 Susan Villafana R.N. PHYSICAL ASSESSMENT Ambulatory to room. GENERAL / NEURO / PSYCH: Alert. Oriented X 4. Appears in no acute distress. HEENT: Pupils equal, round and reactive to light. Dental decay. RESPIRATORY: Respirations not labored. CVS: Capillary refill less than 2 seconds. SKIN: Skin is warm and dry. Normal skin turgor. --16:59 Susan Villafana R.N. NURSING PROGRESS NOTES Patient identifiers checked. Call light placed in reach. Side rails up x 1. Bed placed in lowest position. Brakes of bed on. Patient ready for evaluation- chart flagged. Patient waiting for evaluation. --16:59 Susan Villafana R.N. DISPOSITION / DISCHARGE No learning barriers present. Discharge instructions provided and reviewed with the patient. Reviewed medication(s) side effects, precautions, dosing and course information. Prescription(s) given to the patient. Patient verbalized understanding. Written instructions provided in Georgian. The patient was discharged by the nurse practitioner. He was discharged home. He left the Emergency Department ambulatory and via private vehicle. --17:44 Susan Villafana R.N. 17:43 10/18/16. BP: 109/64. HR: 86. RR: 15. O2 saturation: 99%. Temp: deferred. Pain level now: 12/21. --17:44 Susan Villafana R.N. Locked/Released at 10/18/2016 17:49 by Susan Villafana R.N.
--- NOTE | 2016-10-18 17:11 | ED CLINICAL REPORT ---
Clinical Report - Physicians/Mid Levels [facility] [address] [place] [address] 10/18/2016 16:47 Patient: GIRMA ASTORGA Time Seen: 17:00; initial patient contact, initial documentation, patient care assumed. Arrived- By private vehicle. Historian- patient. HISTORY OF PRESENT ILLNESS Chief Complaint: WOUND RECHECK. Treated in emergency department two days ago. Previous emergency department treatment: laceration repair. No antibiotics given or prescription given. (thinks stitch came out or came loose also c/o sore to inside of mouth that has been there for about 1 1/2 weeks, and running low on ventolin inhaler, and would like work note to go to work tomorrow). REVIEW OF SYSTEMS All systems otherwise negative, except as recorded above. PAST HISTORY See nurses notes. PROBLEMS: Laceration. Head Injury. Headache. Bronchitis. --16:54 Page-Susan Martinez, R.N. ADDITIONAL SURGERIES: no known surgeries. SOCIAL HISTORY Smoker - current status unknown (chews). No alcohol use or drug use. No recent travel. Is a local resident. FAMILY HISTORY No significant family medical history. ADDITIONAL NOTES The nursing notes have been reviewed with agreement regarding the chief complaint, HPI, ROS, PMH and patient medications and allergies. PHYSICAL EXAM Vital Signs: 10/18/2016 16:52 BP: 117/63. HR: 93. RR: 17. O2 saturation: 98%. Temp: 99.1 F. Pain level now: 8/10. Have been reviewed as normal and appear to be correct. Appearance: Alert. Oriented X3. No acute distress. Head: Head non-tender. No swelling of head. Eyes: Pupils equal, round and reactive to light. EOM intact. ENT: No dental injury. Pharynx normal. Neck: Neck non-tender. Painless ROM. Skin: Healing wound. No infection. (x5 sutures intact, wound edges approximating well without s/s of infection). Extremities: Normal inspection. Extremities atraumatic. No lower extremity edema. Neuro, Vascular and Tendons: Sensation intact. No tendon injury. No vascular compromise. Neuro: Oriented X 3. No motor deficit. No sensory deficit. PROGRESS AND PROCEDURES Course of Care: 17:03 10/18/16. pt has ailyn for #8 er visits, see report for full details. Patient counseled in person regarding the patient's stable condition and diagnosis. Differential Diagnosis: Other possible considerations: substance abuse, wound infection, dental pain, caries, abscess, herpes, cancre sore, herpetic gingivostomatitis, phayrngitis. Above considerations are based on history and physical exam. Differential diagnosis was discussed with patient. Disposition: Discharged home in good and unchanged condition (17:10). Condition: good and stable. CLINICAL IMPRESSION Wound check Aphthous ulcer INSTRUCTIONS Protect wound and keep wound area clean. Soak in warm soapy water twice daily. Apply neosporin twice daily. Sutures should be removed in five days. Do not work today. Warnings: GENERAL WARNINGS: Return or contact your physician immediately if your condition worsens or changes unexpectedly, if not improving as expected, or if other problems arise. Specifically return if problem worsens. Prescription Medications: Penicillin V 500mg: take 1 tab orally every 6 hours for 10 days. Dispense forty (40). No refill Albuterol HFA oral inhaler: inhale 1 to 2 puffs every four to six hours as needed for difficulty breathing. Dispense one (1) unit. No refills. Follow-up: Follow up with your doctor in about five days even if well and for suture removal and wound check. Call for an appointment. Summary of care provided to patient. Understanding of the discharge instructions verbalized by patient. (Electronically signed by Dianna Pickett A.R.N.P. 10/18/2016 17:46)
--- NOTE | 2016-10-18 17:50 | ED MAR SUMMARY ---
..... Medication Administration Record [facility] [address] [place], [place] [id number] Patient: GIRMA ASTORGA Visit ID: [id number] 26y, M Weight: 65.7 kg Height/Length: 65 in BMI: 24.1 ALLERGIES: No Known Drug Allergy
--- NOTE | 2016-10-18 17:50 | ED MED RECONCILIATION SUMMARY ---
Patient: GIRMA ASTORGA Medication Reconciliation Report [facility] VisitID: [id number] [address] [place] [address] 26y, M Registration Date/Time: 10/18/2016 Weight: 65.7 kg Height/Length: 65 in. BMI: 24.1 ALLERGIES: No Known Drug Allergy The patient's Home Medications are listed below: NONE. The source(s) of the original Home Medication information: patient The following Medications were given to the patient in the Emergency Department: None. The following Medications were prescribed to the patient: Penicillin V 500mg: take 1 tab orally every 6 hours for 10 days. Dispense forty (40). No refill -- Dianna Pickett A.R.N.P. Albuterol HFA oral inhaler: inhale 1 to 2 puffs every four to six hours as needed for difficulty breathing. Dispense one (1) unit. No refills. -- Dianna Pickett A.R.N.P.
--- NOTE | 2016-10-18 17:50 | ED DISCHARGE INSTRUCTIONS ---
Patient: GIRMA ASTORGA General Instructions [facility] VisitID: [id number] [place] [address] 26y, M Registration Date/Time: 10/18/2016 Wound check Aphthous ulcer INSTRUCTIONS Protect wound and keep wound area clean. Soak in warm soapy water twice daily. Apply neosporin twice daily. Sutures should be removed in five days. Do not work today. Warnings: GENERAL WARNINGS: Return or contact your physician immediately if your condition worsens or changes unexpectedly, if not improving as expected, or if other problems arise. Specifically return if problem worsens. Prescription Medications: Penicillin V 500mg: take 1 tab orally every 6 hours for 10 days. Dispense forty (40). No refill Albuterol HFA oral inhaler: inhale 1 to 2 puffs every four to six hours as needed for difficulty breathing. Dispense one (1) unit. No refills. Follow-up: Follow up with your doctor in about five days even if well and for suture removal and wound check. Call for an appointment. Summary of care provided to patient. Understanding of the discharge instructions verbalized by patient. ADDITIONAL INFORMATION Wound Check, No Infection Your laceration is healing as expected. There is no infection. Home care The following guidelines will help you care for your wound at home: Keep the wound clean and dry. If you were given a bandage, you may change it daily as follows: After removing the bandage, wash the area with soap and water. Use a wet cotton swab to loosen and remove any blood or crust that forms. After cleaning, apply a thin layer of antibiotic ointment. This will keep the wound clean and make it easier to remove the stitches. Reapply a fresh bandage. You may remove the bandage to shower as usual after the first 24 hours, but do not soak the area in water (no swimming) until the sutures are removed. If surgical tape was used, keep the area clean and dry. If it becomes wet, blot it dry with a towel. Follow-up care If sutures or micheal are in place, it is important to keep your appointment for removal. If they are left in place too long permanent estrada may remain. If surgical tape closures were applied, you may remove them yourself if they have not fallen of by 10 days after the injury. When to seek medical care Get prompt medical attention if any of the following occur: Increasing pain in the wound Redness, swelling, or pus coming from the wound Fever of 100.4F (38C) or higher, or as directed by your health care provider If sutures or micheal come apart or fall out before your next appointment If the surgical tape closures fall off within seven days, or the wound edges re-open Canker Sore Canker sore (also called aphthous ulcer) is a recurring painful ulcer in the mouth. It is most painful during the first few days, and it lasts about 7-14 days before going away. The exact cause of a canker sore is not known. The canker sore is not the same as a cold sore on the lip due to herpes virus. Emotional stress or local injury to the mouth (biting your lip or dental work) can cause a canker sore to appear. Home Care: You may find that soft, [id number] foods cause less pain. Avoid sharp or acidic seasonings (like vinegar and lemon). Use a straw to direct liquids away from the sore. Numbing medicines such as Anbesol or Benadryl elixir can be applied to the sore area just before eating to reduce pain temporarily. Follow Up with your doctor as directed by our staff if your sore does not improve after several days or does not heal completely within two weeks. Get Prompt Medical Attention if any of the following occur: Fever of 100.4F (38C) or higher, or as directed by your healthcare provider Inability to eat or swallow due to pain Penicillin V Potassium Oral tablet What is this medicine? PENICILLIN V (pen i SILL in V) is a penicillin antibiotic. It is used to treat certain kinds of bacterial infections. It will not work for colds, flu, or other viral infections. How should I use this medicine? Take this medicine by mouth with a full glass of water. Follow the directions on the prescription label. Take your medicine at regular intervals. Do not take your medicine more often than directed. Take all of your medicine as directed even if you think your are better. Do not skip doses or stop your medicine early. Talk to your avionics systems engineer regarding the use of this medicine in children. While this drug may be prescribed for selected conditions, precautions do apply. What side effects may I notice from receiving this medicine? Side effects that you should report to your doctor or health resident caregiver as soon as possible: allergic reactions like skin rash or hives, swelling of the face, lips, or tongue breathing problems fever new symptoms of infection redness, blistering, peeling or loosening of the skin, including inside the mouth unusually weak or tired Side effects that usually do not require medical attention (report to your doctor or health resident caregiver if they continue or are bothersome): diarrhea headache nausea, vomiting sore mouth or tongue stomach upset What may interact with this medicine? control pills methotrexate other antibiotics probenecid some vaccines What if I miss a dose? If you miss a dose, take it as soon as you can. If it is almost time for your next dose, take only that dose. Do not take double or extra doses. Where should I keep my medicine? Keep out of the reach of children. Store at room temperature between 15 and 30 degrees C (59 and 86 degrees F). Keep container tightly closed. Throw away any unused medicine after the expiration date. What should I tell my health care provider before I take this medicine? They need to know if you have any of these conditions: asthma bowel disease, like colitis eczema kidney disease an unusual or allergic reaction to penicillin, cephalosporins, other antibiotics or medicines, foods, tartrazine or other dyes, or preservatives or trying to get breast-feeding What should I watch for while using this medicine? Tell your doctor or health resident caregiver if your symptoms do not improve. Do not treat diarrhea with over the counter products. Contact your doctor if you have diarrhea that lasts more than 2 days or if it is severe and watery. If you have diabetes, you may get a false-positive result for sugar in your urine. Check with your doctor or health resident caregiver. control pills may not work properly while you are taking this medicine. Talk to your doctor about using an extra method of control. Albuterol Sulfate Pressurized inhalation, suspension What is this medicine? ALBUTEROL (al BYOO ter ole) is a bronchodilator. It helps open up the airways in your lungs to make it easier to breathe. This medicine is used to treat and to prevent bronchospasm. How should I use this medicine? This medicine is for inhalation through the mouth. Follow the directions on your prescription label. Take your medicine at regular intervals. Do not use more often than directed. Make sure that you are using your inhaler correctly. Ask you doctor or health care provider if you have any questions. Talk to your avionics systems engineer regarding the use of this medicine in children. Special care may be needed. What side effects may I notice from receiving this medicine? Side effects that you should report to your doctor or health resident caregiver as soon as possible: allergic reactions like skin rash, itching or hives, swelling of the face, lips, or tongue breathing problems chest pain feeling faint or lightheaded, falls high blood pressure irregular heartbeat fever muscle cramps or weakness pain, tingling, numbness in the hands or feet vomiting Side effects that usually do not require medical attention (report to your doctor or health resident caregiver if they continue or are bothersome): cough difficulty sleeping headache nervousness or trembling stomach upset stuffy or runny nose throat irritation unusual taste What may interact with this medicine? anti-infectives like chloroquine and pentamidine caffeine cisapride diuretics medicines for colds medicines for depression or for emotional or psychotic conditions medicines for weight loss including some herbal products methadone some antibiotics like clarithromycin, erythromycin, levofloxacin, and linezolid some heart medicines steroid hormones like dexamethasone, cortisone, hydrocortisone theophylline thyroid hormones What if I miss a dose? If you miss a dose, use it as soon as you can. If it is almost time for your next dose, use only that dose. Do not use double or extra doses. Where should I keep my medicine? Keep out of the reach of children. Store at room temperature between 15 and 30 degrees C (59 and 86 degrees F). The contents are under pressure and may burst when exposed to heat or flame. Do not freeze. This medicine does not work as well if it is too cold. Throw away any unused medicine after the expiration date. Inhalers need to be thrown away after the labeled number of puffs have been used or by the expiration date; whichever comes first. Ventolin HFA should be thrown away 12 months after removing from foil pouch. Check the instructions that come with your medicine. What should I tell my health care provider before I take this medicine? They need to know if you have any of the following conditions: diabetes heart disease or irregular heartbeat high blood pressure pheochromocytoma seizures thyroid disease an unusual or allergic reaction to albuterol, levalbuterol, sulfites, other medicines, foods, dyes, or preservatives or trying to get breast-feeding What should I watch for while using this medicine? Tell your doctor or health resident caregiver if your symptoms do not improve. Do not use extra albuterol. If your asthma or bronchitis gets worse while you are using this medicine, call your doctor right away. If your mouth gets dry try chewing sugarless gum or sucking hard candy. Drink water as directed. You have been given the following additional information: Wound Check, Lac F/U (No Infection) Aphthous Ulcer Penicillin V Potassium Oral tablet Albuterol Sulfate Pressurized inhalation, suspension Do not work today. (Electronically signed by Dianna Pickett A.R.N.P. 10/18/2016 17:46)
--- NOTE | 2016-10-18 17:50 | ED MAR SUMMARY ---
..... Medication Administration Record [facility] [address] [place], [place] [id number] Patient: GIRMA ASTORGA Visit ID: [id number] 26y, M Weight: 65.7 kg Height/Length: 65 in BMI: 24.1 ALLERGIES: No Known Drug Allergy
--- NOTE | 2016-10-18 17:50 | ED MED RECONCILIATION SUMMARY ---
Patient: GIRMA ASTORGA Medication Reconciliation Report [facility] VisitID: [id number] [address] [place] [address] 26y, M Registration Date/Time: 10/18/2016 Weight: 65.7 kg Height/Length: 65 in. BMI: 24.1 ALLERGIES: No Known Drug Allergy The patient's Home Medications are listed below: NONE. The source(s) of the original Home Medication information: patient The following Medications were given to the patient in the Emergency Department: None. The following Medications were prescribed to the patient: Penicillin V 500mg: take 1 tab orally every 6 hours for 10 days. Dispense forty (40). No refill -- Dianna Pickett A.R.N.P. Albuterol HFA oral inhaler: inhale 1 to 2 puffs every four to six hours as needed for difficulty breathing. Dispense one (1) unit. No refills. -- Dianna Pickett A.R.N.P.
== END 2016-10-18 17:19 | disposition home or self-care (01) ==
LOC: ED SRH 16:46
DX: K12.0 Recurrent oral aphthae (principal); S61.210D Laceration without foreign body of right index finger without damage to nail, subsequent encounter; W45.8XXD Other foreign body or object entering through skin, subsequent encounter

== ENCOUNTER 2016-10-30 15:36 | Emergency (ER) | payer SELFPAY ==
--- NOTE | 2016-10-30 16:42 | DIAGNOSTIC IMAGING REPORT ---
PROCEDURE: XR CHEST 2 VIEW INDICATION: FEVER TECHNIQUE: Two views. COMPARISON: 09/16/2016 FINDINGS: The cardiomediastinal contour is stable, within normal limits. The central vasculature is not congested. The lungs are clear without focal consolidation, pleural effusion or pneumothorax. The visualized osseous structures are intact. IMPRESSION: 1. No evidence of acute cardiopulmonary disease. 2. Stable exam compared to prior study.
--- NOTE | 2016-10-30 17:16 | ED ORDER SUMMARY ---
..... Patient: GIRMA ASTORGA OrderSheet [facility] VisitID: [id number] [place] [address] 26y, M Registration Date/Time: 10/30/2016 ORDER SHEET Weight: 65.7 kg (stated) Allergies: No Known Drug Allergy GENERAL ORDERS: Chest 2V Urgent (16:06 10/30/2016 EKkvng P.A.-C) (Ack 16:19 LNations ER Tech1) (17:09 MCampbell) MEDICATION ORDERS: DuoNeb Neb Tx 1 unit dose (NOW) (15:47 10/30/2016 Olivia P.A.-C) (Ack 15:55 MWinterer R.N.) (16:18 MWinterer R.N.) Albuterol Neb Tx 2.5 mg (NOW) (15:47 10/30/2016 Olivia P.A.-C) (Ack 15:55 MWinterer R.N.) (16:18 MWinterer R.N.) IV FLUIDS: ORDER SHEET NOTES: [Electronically signed by Alexandra Martines R.N. (17:28 10/30/2016)] [Electronically signed by Maria Elena Campuzano P.A.-C (17:37 10/30/2016)] [Electronically locked/signed by Alexandra Martines R.N. (17:28 10/30/2016)]
--- NOTE | 2016-10-30 17:16 | ED NURSING NOTES ---
Clinical Report - Nurses [facility] [address] [place] [address] 10/30/2016 15:36 Patient: GIRMA ASTORGA TRIAGE Acuity: LEVEL 3. Chief Complaint: SHORTNESS OF BREATH and DIFFICULTY BREATHING. Alert. No acute distress. SEPSIS SCREEN: Sepsis Screen. Negative (no infection suspected/documented). --15:44 Alexandra Martines R.N. 15:40 10/30/16. BP: 132/72. HR: 79. RR: 20. O2 saturation: 96% on room air. Temp: 97.7 F. Pain level now: 0/10. --15:44 Alexandra Martines R.N. Weight: 65.7 kg stated. Height/Length: 66 inches Per Patient. BMI: 23.4. --15:42 Alexandra Martines R.N. Medications Ventolin HFA Inhalation. --15:41 Alexandra Martines R.N. Medication/allergy information source: the patient. --15:44 Alexandra Martines R.N. Allergies No Known Drug Allergy. --15:41 Alexandra Martines R.N. History Arrived by private vehicle. Historian: patient. Unaccompanied. Primary physician (none). This started today. SOCIAL HX: Former smoker, end date 2014. No alcohol use or drug use. FALL RISK ASSESSMENT: Fall risk assessment completed. No fall risk identified. NUTRITIONAL RISK ASSESSMENT: The nutritional risk assessment revealed no deficiencies. FUNCTIONAL ASSESSMENT: Functional assessment: no impairments noted. LEARNING NEEDS ASSESSMENT: The learning needs assessment revealed no barriers. SKIN INTEGRITY ASSESSMENT: Skin integrity risk assessment completed. No skin integrity risk identified. --15:44 Alexandra Martines R.N. PROBLEMS: Aphthous Ulcer. Wound Check. Laceration. Head Injury. Headache. Bronchitis. --15:41 Alexandra Martines R.N. Assessment GENERAL / NEURO / PSYCH: Alert. Oriented X 4. Appears in no acute distress. Luis Coma Scale: 15- eyes open spontaneously (4); best verbal response- oriented x 4 (5); best motor response- obeys commands (6). Patient appears calm and cooperative. RESPIRATORY: Respirations not labored. Wheezing present. CVS: Capillary refill less than 2 seconds. GI / : Abdomen soft and nontender. SKIN: Mucous membranes are pink. Skin is warm and dry. --15:44 Alexandra Martines R.N. Interventions ID band on patient. To treatment room. --15:44 Alexandra Martines R.N. PHYSICAL ASSESSMENT 15:44 10/30/16. Ambulatory to room. GENERAL / NEURO / PSYCH: Alert. Oriented X 4. Appears in no acute distress. HEENT: Mucous membranes are pink. RESPIRATORY: Mild respiratory distress. The patient can speak in full sentences. Retractions. Cough. Inspiratory wheezes present. CVS: Capillary refill less than 2 seconds. GI / : Abdomen soft and nontender. SKIN: Skin is warm and dry. Normal skin turgor. --15:44 Alexandra Martines R.N. NURSING PROGRESS NOTES Patient gowned. Two patient identifiers checked. Call light placed in reach. Bed placed in lowest position. Brakes of bed on. Patient ready for evaluation- chart flagged and PA notified. --15:45 Alexandra Martines R.N. 16:18 10/30/2016 Duoneb (Ipratropium-Albuterol) Neb TX 1 unit dose given. Given by the respiratory therapist. Allergies verified and confirmed 5 rights. --16:18 Alexandra Martines R.N. 16:18 10/30/2016 Albuterol Neb TX 2.5 mg given. Given by the respiratory therapist. Allergies verified and confirmed 5 rights. --16:18 Alexandra Martines R.N. 16:28 10/30/16. Reassessment after medication administered. He reports no complaints and he is calm and resting quietly. Overall patient status is improved- he states feels better. RESPIRATORY: No respiratory distress. --16:28 Alexandra Martines R.N. 16:28 10/30/16. BP: 109/58. HR: 69. RR: 16. O2 saturation: 98%. --16:29 Alexandra Martines R.N. 17:05. Care transferred and report received. --17:17 Bhavani Christie R.N. DISPOSITION / DISCHARGE Departure time: 17:24 Oct 30 2016. Condition at departure: improved and stable. No learning barriers present. Discharge instructions provided and reviewed with the patient. Reviewed medication(s) side effects, precautions, dosing and course information. Prescription(s) given to the patient. Patient verbalized understanding. Written instructions provided in Khmer. The patient was discharged by the physician residential living assistant. He was discharged home. He left the Emergency Department ambulatory and via private vehicle. Patient driving. --17:25 Bhavani Christie R.N. 17:24 10/30/16. BP: 104/74. HR: 80. RR: 18. O2 saturation: 99%. Temp: 98.3 F (oral). Pain level now: 0/10. --17:25 Bhavani Christie R.N. Locked/Released at 10/30/2016 17:28 by Alexandra Martines R.N.
--- NOTE | 2016-10-30 17:16 | ED NURSING NOTES ---
Clinical Report - Nurses [facility] [address] [place] [address] 10/30/2016 15:36 Patient: GIRMA ASTORGA TRIAGE Acuity: LEVEL 3. Chief Complaint: SHORTNESS OF BREATH and DIFFICULTY BREATHING. Alert. No acute distress. SEPSIS SCREEN: Sepsis Screen. Negative (no infection suspected/documented). --15:44 Alexandra Martines R.N. 15:40 10/30/16. BP: 132/72. HR: 79. RR: 20. O2 saturation: 96% on room air. Temp: 97.7 F. Pain level now: 0/10. --15:44 Alexandra Martines R.N. Weight: 65.7 kg stated. Height/Length: 66 inches Per Patient. BMI: 23.4. --15:42 Alexandra Martines R.N. Medications Ventolin HFA Inhalation. --15:41 Alexandra Martines R.N. Medication/allergy information source: the patient. --15:44 Alexandra Martines R.N. Allergies No Known Drug Allergy. --15:41 Alexandra Martines R.N. History Arrived by private vehicle. Historian: patient. Unaccompanied. Primary physician (none). This started today. SOCIAL HX: Former smoker, end date 2014. No alcohol use or drug use. FALL RISK ASSESSMENT: Fall risk assessment completed. No fall risk identified. NUTRITIONAL RISK ASSESSMENT: The nutritional risk assessment revealed no deficiencies. FUNCTIONAL ASSESSMENT: Functional assessment: no impairments noted. LEARNING NEEDS ASSESSMENT: The learning needs assessment revealed no barriers. SKIN INTEGRITY ASSESSMENT: Skin integrity risk assessment completed. No skin integrity risk identified. --15:44 Alexandra Martines R.N. PROBLEMS: Aphthous Ulcer. Wound Check. Laceration. Head Injury. Headache. Bronchitis. --15:41 Alexandra Martines R.N. Assessment GENERAL / NEURO / PSYCH: Alert. Oriented X 4. Appears in no acute distress. Luis Coma Scale: 15- eyes open spontaneously (4); best verbal response- oriented x 4 (5); best motor response- obeys commands (6). Patient appears calm and cooperative. RESPIRATORY: Respirations not labored. Wheezing present. CVS: Capillary refill less than 2 seconds. GI / : Abdomen soft and nontender. SKIN: Mucous membranes are pink. Skin is warm and dry. --15:44 Alexandra Martines R.N. Interventions ID band on patient. To treatment room. --15:44 Alexandra Martines R.N. PHYSICAL ASSESSMENT 15:44 10/30/16. Ambulatory to room. GENERAL / NEURO / PSYCH: Alert. Oriented X 4. Appears in no acute distress. HEENT: Mucous membranes are pink. RESPIRATORY: Mild respiratory distress. The patient can speak in full sentences. Retractions. Cough. Inspiratory wheezes present. CVS: Capillary refill less than 2 seconds. GI / : Abdomen soft and nontender. SKIN: Skin is warm and dry. Normal skin turgor. --15:44 Alexandra Martines R.N. NURSING PROGRESS NOTES Patient gowned. Two patient identifiers checked. Call light placed in reach. Bed placed in lowest position. Brakes of bed on. Patient ready for evaluation- chart flagged and PA notified. --15:45 Alexandra Martines R.N. 16:18 10/30/2016 Duoneb (Ipratropium-Albuterol) Neb TX 1 unit dose given. Given by the respiratory therapist. Allergies verified and confirmed 5 rights. --16:18 Alexandra Martines R.N. 16:18 10/30/2016 Albuterol Neb TX 2.5 mg given. Given by the respiratory therapist. Allergies verified and confirmed 5 rights. --16:18 Alexandra Martines R.N. 16:28 10/30/16. Reassessment after medication administered. He reports no complaints and he is calm and resting quietly. Overall patient status is improved- he states feels better. RESPIRATORY: No respiratory distress. --16:28 Alexandra Martines R.N. 16:28 10/30/16. BP: 109/58. HR: 69. RR: 16. O2 saturation: 98%. --16:29 Alexandra Martines R.N. 17:05. Care transferred and report received. --17:17 Bhavani Christie R.N. DISPOSITION / DISCHARGE Departure time: 17:24 Oct 30 2016. Condition at departure: improved and stable. No learning barriers present. Discharge instructions provided and reviewed with the patient. Reviewed medication(s) side effects, precautions, dosing and course information. Prescription(s) given to the patient. Patient verbalized understanding. Written instructions provided in Ukrainian. The patient was discharged by the physician assistant professor sculpture. He was discharged home. He left the Emergency Department ambulatory and via private vehicle. Patient driving. --17:25 Bhavani Christie R.N. 17:24 10/30/16. BP: 104/74. HR: 80. RR: 18. O2 saturation: 99%. Temp: 98.3 F (oral). Pain level now: 0/10. --17:25 Bhavani Christie R.N. Locked/Released at 10/30/2016 17:28 by Alexandra Martines R.N.
--- NOTE | 2016-10-30 17:16 | ED ORDER SUMMARY ---
..... Patient: GIRMA ASTORGA OrderSheet [facility] VisitID: [id number] [place] [address] 26y, M Registration Date/Time: 10/30/2016 ORDER SHEET Weight: 65.7 kg (stated) Allergies: No Known Drug Allergy GENERAL ORDERS: Chest 2V Urgent (16:06 10/30/2016 EKkvng P.A.-C) (Ack 16:19 LNations ER Tech1) (17:09 MCampbell) MEDICATION ORDERS: DuoNeb Neb Tx 1 unit dose (NOW) (15:47 10/30/2016 Olivia P.A.-C) (Ack 15:55 MWinterer R.N.) (16:18 MWinterer R.N.) Albuterol Neb Tx 2.5 mg (NOW) (15:47 10/30/2016 Olivia P.A.-C) (Ack 15:55 MWinterer R.N.) (16:18 MWinterer R.N.) IV FLUIDS: ORDER SHEET NOTES: [Electronically signed by Alexandra Martines R.N. (17:28 10/30/2016)] [Electronically signed by Maria Elena Campuzano P.A.-C (17:37 10/30/2016)] [Electronically locked/signed by Alexandra Martines R.N. (17:28 10/30/2016)]
--- NOTE | 2016-10-30 17:16 | ED CLINICAL REPORT ---
Clinical Report - Physicians/Mid Levels [facility] [address] [place] [address] 10/30/2016 15:36 Patient: GIRMA ASTORGA Time Seen: 17:04 Oct 30 2016. Arrived- By private vehicle. Historian- patient. HISTORY OF PRESENT ILLNESS Chief Complaint: DYSPNEA and WHEEZING. This started worst since yesterday and is still present. The dyspnea is described as mild. The patient has had a cough. (Patient with recurrent cough concerns, with wheezing over the last few months, was previously on antibiotics, as well as steroids. patient reports to having difficulty financially afford an inhaler, and ran out of his last night, when his symptoms started to develop. Patient denies fevers. He denies recent illness, has been recently on steroids.). REVIEW OF SYSTEMS No sore throat, sinus drainage, fever, chills or headache. No abdominal pain, diarrhea or difficulty with urination. All systems otherwise negative, except as recorded above. PAST HISTORY Problems: Aphthous Ulcer. Wound Check. Laceration. Head Injury. Headache. Bronchitis. Medications: Ventolin HFA Inhalation. Allergies: No Known Drug Allergy. SOCIAL HISTORY Former smoker. No alcohol use. PHYSICAL EXAM Appearance: Alert. ENT: Nose normal. Pharynx normal. Neck: Normal inspection. No lymphadenopathy. CVS: Normal heart rate and rhythm. Pulses normal. Respiratory: Decreased air movement. Wheezing present. Abdomen: Nontender. The bowel sounds are not abnormal. No distention. Back: Normal inspection. Skin: Skin warm. Normal skin color. No rash. Neuro: Oriented X 3. No motor deficit. LABS, X-RAYS, AND EKG Chest X-ray: (IMPRESSION: 1. No evidence of acute cardiopulmonary disease. 2. Stable exam compared to prior study. Electronically Final signed by:Jordyn Barrientos MD 10/30/2016 4:36:12 PM). PROGRESS AND PROCEDURES Course of Care: The patient in the emergency department with wheezing, improvement with DuoNeb as well as albuterol, patient given dexamethasone. Unable to discuss with case management social worker discharge plan, and the swab for oral albuterol, as well as dexamethasone, temperature both $4 list prescriptions. Patient understands need to follow up with primary care in establish such. No history of PE or DVT, no concern for such at this moment. 10/30/2016 17:24 BP: 104/74. HR: 80. RR: 18. O2 saturation: 99%. Temp: 98.3 F. Pain level now: 0/10. Patient is stable. Symptoms better. Patient/family counseled. Disposition: Discharged. Condition: good. CLINICAL IMPRESSION Acute bronchitis. Reactive airway disease with acute bronchospasm, cough and shortness of breath. INSTRUCTIONS ([facility]: Medical ). Prescription Medications: Albuterol 4 mg: Take 1 orally every 6 hours as needed for wheezing, difficulty breathing or shortness of breath. No refill. (#60) dexamethasone 4 mg tab # 6, take one po bid for 3 days. Follow-up: Follow up with your doctor. (Electronically signed by Maria Elena Campuzano P.A.-C 10/30/2016 17:37)
--- NOTE | 2016-10-30 17:16 | ED CLINICAL REPORT ---
Clinical Report - Physicians/Mid Levels [facility] [address] [place] [address] 10/30/2016 15:36 Patient: GIRMA ASTORGA Time Seen: 17:04 Oct 30 2016. Arrived- By private vehicle. Historian- patient. HISTORY OF PRESENT ILLNESS Chief Complaint: DYSPNEA and WHEEZING. This started worst since yesterday and is still present. The dyspnea is described as mild. The patient has had a cough. (Patient with recurrent cough concerns, with wheezing over the last few months, was previously on antibiotics, as well as steroids. patient reports to having difficulty financially afford an inhaler, and ran out of his last night, when his symptoms started to develop. Patient denies fevers. He denies recent illness, has been recently on steroids.). REVIEW OF SYSTEMS No sore throat, sinus drainage, fever, chills or headache. No abdominal pain, diarrhea or difficulty with urination. All systems otherwise negative, except as recorded above. PAST HISTORY Problems: Aphthous Ulcer. Wound Check. Laceration. Head Injury. Headache. Bronchitis. Medications: Ventolin HFA Inhalation. Allergies: No Known Drug Allergy. SOCIAL HISTORY Former smoker. No alcohol use. PHYSICAL EXAM Appearance: Alert. ENT: Nose normal. Pharynx normal. Neck: Normal inspection. No lymphadenopathy. CVS: Normal heart rate and rhythm. Pulses normal. Respiratory: Decreased air movement. Wheezing present. Abdomen: Nontender. The bowel sounds are not abnormal. No distention. Back: Normal inspection. Skin: Skin warm. Normal skin color. No rash. Neuro: Oriented X 3. No motor deficit. LABS, X-RAYS, AND EKG Chest X-ray: (IMPRESSION: 1. No evidence of acute cardiopulmonary disease. 2. Stable exam compared to prior study. Electronically Final signed by:Jordyn Barrientos MD 10/30/2016 4:36:12 PM). PROGRESS AND PROCEDURES Course of Care: The patient in the emergency department with wheezing, improvement with DuoNeb as well as albuterol, patient given dexamethasone. Unable to discuss with elementary school social worker discharge plan, and the swab for oral albuterol, as well as dexamethasone, temperature both $4 list prescriptions. Patient understands need to follow up with primary care in establish such. No history of PE or DVT, no concern for such at this moment. 10/30/2016 17:24 BP: 104/74. HR: 80. RR: 18. O2 saturation: 99%. Temp: 98.3 F. Pain level now: 0/10. Patient is stable. Symptoms better. Patient/family counseled. Disposition: Discharged. Condition: good. CLINICAL IMPRESSION Acute bronchitis. Reactive airway disease with acute bronchospasm, cough and shortness of breath. INSTRUCTIONS ([facility]: Medical ). Prescription Medications: Albuterol 4 mg: Take 1 orally every 6 hours as needed for wheezing, difficulty breathing or shortness of breath. No refill. (#60) dexamethasone 4 mg tab # 6, take one po bid for 3 days. Follow-up: Follow up with your doctor. (Electronically signed by Maria Elena Campuzano P.A.-C 10/30/2016 17:37)
--- NOTE | 2016-10-30 17:37 | ED MED RECONCILIATION SUMMARY ---
Patient: GIRMA ASTORGA Medication Reconciliation Report [facility] VisitID: [id number] [address] [place] [address] 26y, M Registration Date/Time: 10/30/2016 Weight: 65.7 kg Height/Length: 66 in. BMI: 23.4 ALLERGIES: No Known Drug Allergy The patient's Home Medications are listed below: THE FOLLOWING MEDICATIONS NEED TO BE RECONCILED: Ventolin HFA Inhalation The source(s) of the original Home Medication information: patient The following Medications were given to the patient in the Emergency Department: Duoneb [Neb Tx] Neb TX 1 unit dose, administered: 10/30/2016 4:18:00 PM Albuterol [Neb Tx] Neb TX 2.5 mg, administered: 10/30/2016 4:18:00 PM The following Medications were prescribed to the patient: Albuterol 4 mg: Take 1 orally every 6 hours as needed for wheezing, difficulty breathing or shortness of breath. No refill.(#60) -- Maria Elena Campuzano, P.A.-C dexamethasone 4 mg tab # 6, take one po bid for 3 days. -- Maria Elena Campuzano, P.A.-C
--- NOTE | 2016-10-30 17:37 | ED MAR SUMMARY ---
..... Medication Administration Record [facility] [address] [place] [address] Patient: GIRMA ASTORGA Visit ID: [id number] 26y, M Weight: 65.7 kg Height/Length: 66 in BMI: 23.4 ALLERGIES: No Known Drug Allergy Given 16:18 10/30/2016 Alexandra Martines, REugeniaNEugenia Medication Administered: DUONEB [NEB TX] (IPRATROPIUM-ALBUTEROL), Dose: 1 unit dose Neb TX. Medication Ordered: DuoNeb Neb Tx 1 unit dose (NOW). Given 16:18 10/30/2016 Alexandra Martines, REugeniaN. Medication Administered: ALBUTEROL [NEB TX], Dose: 2.5 mg Neb TX. Medication Ordered: Albuterol Neb Tx 2.5 mg (NOW).
--- NOTE | 2016-10-30 17:37 | ED DISCHARGE INSTRUCTIONS ---
Patient: GIRMA ASTORGA General Instructions [facility] VisitID: [id number] [place] [address] 26y, M Registration Date/Time: 10/30/2016 Acute bronchitis. Reactive airway disease with acute bronchospasm, cough and shortness of breath. INSTRUCTIONS ([facility]: Medical ). Prescription Medications: Albuterol 4 mg: Take 1 orally every 6 hours as needed for wheezing, difficulty breathing or shortness of breath. No refill. (#60) dexamethasone 4 mg tab # 6, take one po bid for 3 days. Follow-up: Follow up with your doctor. ADDITIONAL INFORMATION Bronchitis, Viral (Adult: No Abx) You have a viral bronchitis. This illness is contagious during the first few days and is spread through the air by coughing and sneezing, or by direct contact (touching the sick person and then touching your own eyes, nose, or mouth). Most viral illnesses resolve within 10-14 days with rest and simple home remedies, although they may sometimes last for several weeks. Antibiotics will not kill a virus and are generally not prescribed for this condition. Home Care: If symptoms are severe, rest at home for the first 2-3 days. When resuming activity, don't let yourself become overly tired. Do not smoke and avoid the smoke of others. You may use acetaminophen (Tylenol) or ibuprofen (Motrin, Advil) to control fever or pain, unless another pain medicine was prescribed. [NOTE: If you have chronic liver or kidney disease or ever had a stomach ulcer or GI bleeding, talk with your doctor before using these medicines.] (Aspirin should never be used in anyone under 18 years of age who is ill with a fever. It may cause severe liver damage.) Your appetite may be poor so a light diet is fine. Avoid dehydration by drinking 6-8 glasses of fluids per day (water, sport drinks such as Gatorade, juices, tea, soup, etc.). Extra fluids will help loosen secretions in the nose and lung. [id number] cold medicines will not shorten the length of the illness, but may be helpful for cough (Robitussin DM), sore throat (Chloraseptic lozenges or spray), nasal and sinus congestion (Actifed or Sudafed). [NOTE: Do not use decongestants if you have high blood pressure.] Follow Up with your doctor or as directed by our staff if you are not improving over the next week. NOTE: If you are age 65 or older, or if you have chronic asthma or COPD, we recommend a PNEUMOCOCCAL VACCINATION every five years and a yearly INFLUENZAVACCINATION (FLU-SHOT) every . Ask your doctor about this. If you had an X-ray, a radiologist will review it. You will be notified of any new findings that may affect your care.] Get Prompt Medical Attention if any of the following occur: Fever over 100.4F (38.0C) for more than three days Trouble breathing, wheezing or pain with breathing Coughing up blood or increased amounts of colored sputum Weakness, drowsiness, headache, facial pain, ear pain or a stiff neck Albuterol Sulfate Oral tablet, extended-release What is this medicine? ALBUTEROL (al BYOO ter ole) is a bronchodilator. It helps open up the airways in your lungs to make it easier to breathe. This medicine is used to treat and to prevent bronchospasm. How should I use this medicine? Take this medicine by mouth. Follow the directions on the prescription label. If this medicine upsets your stomach, take it with food or milk. Do not crush or chew extended-release tablets. Do not take more often than directed. Talk to your screed person regarding the use of this medicine in children. Special care may be needed. What side effects may I notice from receiving this medicine? Side effects that you should report to your doctor or health clinical care coordinator as soon as possible: allergic reactions like skin rash, itching or hives, swelling of the face, lips, or tongue breathing problems chest pain feeling faint or lightheaded, falls high blood pressure irregular heartbeat fever muscle cramps or weakness pain, tingling, numbness in the hands or feet vomiting Side effects that usually do not require medical attention (report to your doctor or health clinical care coordinator if they continue or are bothersome): cough diarrhea difficulty sleeping fast heartbeat headache nervousness, trembling stuffy or runny nose upset stomach What may interact with this medicine? anti-infectives like chloroquine and pentamidine caffeine cisapride diuretics medicines for colds medicines for depression or for emotional or psychotic conditions medicines for weight loss including some herbal products methadone some antibiotics like clarithromycin, erythromycin, levofloxacin, and linezolid some heart medicines steroid hormones like dexamethasone, cortisone, hydrocortisone theophylline thyroid hormones What if I miss a dose? If you miss a dose, take it as soon as you can. If it is almost time for your next dose, take only that dose. Do not take double or extra doses. Where should I keep my medicine? Keep out of the reach of children. Store Volmax ER tablets in the refrigerator (36 to 46 degrees F). Other tablets may be stored at room temperature (59 to 86 degrees F), check the packaging or ask your pharmacist. Keep container closed tightly. Throw away any unused medicine after the expiration date. What should I tell my health care provider before I take this medicine? They need to know if you have any of the following conditions: diabetes heart disease or irregular heartbeat high blood pressure pheochromocytoma seizures thyroid disease an unusual or allergic reaction to albuterol, levalbuterol, sulfites, other medicines, foods, dyes, or preservatives or trying to get breast-feeding What should I watch for while using this medicine? Tell your doctor or health clinical care coordinator if your symptoms do not improve. Do not take extra doses. If your asthma or bronchitis gets worse while you are using this medicine, call your doctor right away. If your mouth gets dry try chewing sugarless gum or sucking hard candy. Drink water as directed. You have been given the following additional information: Bronchitis, No Antibiotic (Adult) Albuterol Sulfate Oral tablet, extended-release (Electronically signed by Maria Elena Campuzano P.A.-C 10/30/2016 17:37)
--- NOTE | 2016-10-30 17:37 | ED MED RECONCILIATION SUMMARY ---
Patient: GIRMA ASTORGA Medication Reconciliation Report [facility] VisitID: [id number] [address] [place] [address] 26y, M Registration Date/Time: 10/30/2016 Weight: 65.7 kg Height/Length: 66 in. BMI: 23.4 ALLERGIES: No Known Drug Allergy The patient's Home Medications are listed below: THE FOLLOWING MEDICATIONS NEED TO BE RECONCILED: Ventolin HFA Inhalation The source(s) of the original Home Medication information: patient The following Medications were given to the patient in the Emergency Department: Duoneb [Neb Tx] Neb TX 1 unit dose, administered: 10/30/2016 4:18:00 PM Albuterol [Neb Tx] Neb TX 2.5 mg, administered: 10/30/2016 4:18:00 PM The following Medications were prescribed to the patient: Albuterol 4 mg: Take 1 orally every 6 hours as needed for wheezing, difficulty breathing or shortness of breath. No refill.(#60) -- Maria Elena Campuzano, P.A.-C dexamethasone 4 mg tab # 6, take one po bid for 3 days. -- Maria Elena Campuzano, P.A.-C
--- NOTE | 2016-10-30 17:37 | ED MAR SUMMARY ---
..... Medication Administration Record [facility] [address] [place] [address] Patient: GIRMA ASTORGA Visit ID: [id number] 26y, M Weight: 65.7 kg Height/Length: 66 in BMI: 23.4 ALLERGIES: No Known Drug Allergy Given 16:18 10/30/2016 Alexandra Martines, REugeniaNEugenia Medication Administered: DUONEB [NEB TX] (IPRATROPIUM-ALBUTEROL), Dose: 1 unit dose Neb TX. Medication Ordered: DuoNeb Neb Tx 1 unit dose (NOW). Given 16:18 10/30/2016 Alexandra Martines, REugeniaN. Medication Administered: ALBUTEROL [NEB TX], Dose: 2.5 mg Neb TX. Medication Ordered: Albuterol Neb Tx 2.5 mg (NOW).
--- NOTE | 2016-10-30 17:37 | ED DISCHARGE INSTRUCTIONS ---
Patient: GIRMA ASTORGA General Instructions [facility] VisitID: [id number] [place] [address] 26y, M Registration Date/Time: 10/30/2016 Acute bronchitis. Reactive airway disease with acute bronchospasm, cough and shortness of breath. INSTRUCTIONS ([facility]: Medical ). Prescription Medications: Albuterol 4 mg: Take 1 orally every 6 hours as needed for wheezing, difficulty breathing or shortness of breath. No refill. (#60) dexamethasone 4 mg tab # 6, take one po bid for 3 days. Follow-up: Follow up with your doctor. ADDITIONAL INFORMATION Bronchitis, Viral (Adult: No Abx) You have a viral bronchitis. This illness is contagious during the first few days and is spread through the air by coughing and sneezing, or by direct contact (touching the sick person and then touching your own eyes, nose, or mouth). Most viral illnesses resolve within 10-14 days with rest and simple home remedies, although they may sometimes last for several weeks. Antibiotics will not kill a virus and are generally not prescribed for this condition. Home Care: If symptoms are severe, rest at home for the first 2-3 days. When resuming activity, don't let yourself become overly tired. Do not smoke and avoid the smoke of others. You may use acetaminophen (Tylenol) or ibuprofen (Motrin, Advil) to control fever or pain, unless another pain medicine was prescribed. [NOTE: If you have chronic liver or kidney disease or ever had a stomach ulcer or GI bleeding, talk with your doctor before using these medicines.] (Aspirin should never be used in anyone under 18 years of age who is ill with a fever. It may cause severe liver damage.) Your appetite may be poor so a light diet is fine. Avoid dehydration by drinking 6-8 glasses of fluids per day (water, sport drinks such as Gatorade, juices, tea, soup, etc.). Extra fluids will help loosen secretions in the nose and lung. Taaz-phb-jfetudh cold medicines will not shorten the length of the illness, but may be helpful for cough (Robitussin DM), sore throat (Chloraseptic lozenges or spray), nasal and sinus congestion (Actifed or Sudafed). [NOTE: Do not use decongestants if you have high blood pressure.] Follow Up with your doctor or as directed by our staff if you are not improving over the next week. NOTE: If you are age 65 or older, or if you have chronic asthma or COPD, we recommend a PNEUMOCOCCAL VACCINATION every five years and a yearly INFLUENZAVACCINATION (FLU-SHOT) every . Ask your doctor about this. If you had an X-ray, a radiologist will review it. You will be notified of any new findings that may affect your care.] Get Prompt Medical Attention if any of the following occur: Fever over 100.4F (38.0C) for more than three days Trouble breathing, wheezing or pain with breathing Coughing up blood or increased amounts of colored sputum Weakness, drowsiness, headache, facial pain, ear pain or a stiff neck Albuterol Sulfate Oral tablet, extended-release What is this medicine? ALBUTEROL (al BYOO ter ole) is a bronchodilator. It helps open up the airways in your lungs to make it easier to breathe. This medicine is used to treat and to prevent bronchospasm. How should I use this medicine? Take this medicine by mouth. Follow the directions on the prescription label. If this medicine upsets your stomach, take it with food or milk. Do not crush or chew extended-release tablets. Do not take more often than directed. Talk to your pigs feet finisher regarding the use of this medicine in children. Special care may be needed. What side effects may I notice from receiving this medicine? Side effects that you should report to your doctor or health career technical education teacher as soon as possible: allergic reactions like skin rash, itching or hives, swelling of the face, lips, or tongue breathing problems chest pain feeling faint or lightheaded, falls high blood pressure irregular heartbeat fever muscle cramps or weakness pain, tingling, numbness in the hands or feet vomiting Side effects that usually do not require medical attention (report to your doctor or health career technical education teacher if they continue or are bothersome): cough diarrhea difficulty sleeping fast heartbeat headache nervousness, trembling stuffy or runny nose upset stomach What may interact with this medicine? anti-infectives like chloroquine and pentamidine caffeine cisapride diuretics medicines for colds medicines for depression or for emotional or psychotic conditions medicines for weight loss including some herbal products methadone some antibiotics like clarithromycin, erythromycin, levofloxacin, and linezolid some heart medicines steroid hormones like dexamethasone, cortisone, hydrocortisone theophylline thyroid hormones What if I miss a dose? If you miss a dose, take it as soon as you can. If it is almost time for your next dose, take only that dose. Do not take double or extra doses. Where should I keep my medicine? Keep out of the reach of children. Store Volmax ER tablets in the refrigerator (36 to 46 degrees F). Other tablets may be stored at room temperature (59 to 86 degrees F), check the packaging or ask your pharmacist. Keep container closed tightly. Throw away any unused medicine after the expiration date. What should I tell my health care provider before I take this medicine? They need to know if you have any of the following conditions: diabetes heart disease or irregular heartbeat high blood pressure pheochromocytoma seizures thyroid disease an unusual or allergic reaction to albuterol, levalbuterol, sulfites, other medicines, foods, dyes, or preservatives or trying to get breast-feeding What should I watch for while using this medicine? Tell your doctor or health career technical education teacher if your symptoms do not improve. Do not take extra doses. If your asthma or bronchitis gets worse while you are using this medicine, call your doctor right away. If your mouth gets dry try chewing sugarless gum or sucking hard candy. Drink water as directed. You have been given the following additional information: Bronchitis, No Antibiotic (Adult) Albuterol Sulfate Oral tablet, extended-release (Electronically signed by Maria Elena Campuzano P.A.-C 10/30/2016 17:37)
== END 2016-10-30 17:25 | disposition home or self-care (01) ==
LOC: ED SRH 15:36
DX: J20.9 Acute bronchitis, unspecified (principal); J45.909 Unspecified asthma, uncomplicated; R06.02 Shortness of breath; Z79.899 Other long term (current) drug therapy; Z87.891 Personal history of nicotine dependence

== ENCOUNTER 2016-11-06 20:14 | Emergency (ER) | payer SELFPAY ==
--- NOTE | 2016-11-06 21:23 | ED CLINICAL REPORT ---
Clinical Report - Physicians/Mid Levels [facility] [address] [place] [address] 11/06/2016 20:14 Patient: GIRMA ASTORGA Time Seen: 2110. Arrived- By private vehicle. Historian- patient. HISTORY OF PRESENT ILLNESS Chief Complaint: DYSPNEA, WHEEZING and HISTORY OF ASTHMA. Is still present. The dyspnea is described as mild. The patient has had a cough. Asthma triggers: unknown. (Patient presents with shortness of breath, worsening of his breathing over the last 24 hours, he has been out of his medications. He denies any chest pain. He denies any hemoptysis. Denies any foreign travel. Denies fevers. Patient does not have a primary care provider. He's been as being similar symptoms over the last few months.). REVIEW OF SYSTEMS No sore throat, fever, chills, abdominal pain or black stools. No difficulty with urination. All systems otherwise negative, except as recorded above. SOCIAL HISTORY Never smoker. No alcohol use or drug use. ADDITIONAL NOTES The nursing notes have been reviewed. PHYSICAL EXAM Vital Signs: 11/06/2016 20:25 BP: 119/69. HR: 93. RR: 22. O2 saturation: 92%. Temp: 97.8 F. Pain level now: 5/10. Appearance: Alert. No acute distress. ENT: Nose normal. Pharynx normal. Neck: Normal inspection. Neck supple. CVS: Normal heart rate and rhythm. Heart sounds normal. Respiratory: No respiratory distress. Decreased air movement. Wheezing present. Abdomen: Soft. Back: Normal inspection. No CVA tenderness. Skin: Skin warm. Normal skin color. Neuro: Oriented X 3. No motor deficit. LABS, X-RAYS, AND EKG Laboratory Tests: CBC w Diff: (SUNIL: 11/06/2016 21:50) ( MsgRcvd 11/06/2016 22:21) Final results Test Result Flag Units (Reference) WHITE BLOOD COUNT 9.2 K/uL (4.5-11.5) RED BLOOD COUNT 4.74 M/uL (4.50-5.90) HEMOGLOBIN 13.5 gm/dL (13.5-17.5) HEMATOCRIT 39.6 L % (41.0-53.0) MEAN CELL VOLUME 84 fL (80-100) MEAN CORPUSCULAR HGB 29 pg (26-34) MEAN CORPUSCULAR HGB CONC 34 g/dL (31-37) RED CELL DISTRIBUTION WIDTH 12.9 % (11.6-14.8) PLATELET COUNT 274 K/uL (150-400) NEUTROPHIL % 57.4 % (50-75) LYMPH % 20.1 L % (25-40) MONO % 6.3 % (3-14) EOSINOPHIL % 15.3 H % (0-4) BASOPHIL % 0.9 % (0-2) [id number]: (SUNIL: 11/06/2016 21:50) ( [facility] [place] 11/06/2016 22:31) Final results Test Result Flag Units (Reference) D-DIMER QUANTITATIVE < 0.27 L ug/mLFEU (0.27-0.52) The primary value of this quantitative assay relates toits negative predictive value (i.e. exclusion) of pulmonaryembolism/deep vein thrombosis/DIC.Elevated levels of d-dimer may also occur with:, age, cancer, inflammation, liver disease,post-op, infection, hematoma, coronary disease, peripheralarteriopathy, bleeding disorders and thrombolytic treatment.Results should be correlated with other clinical andradiological data.Testing Methodology: Latex Immunoassay CMP: (SUNIL: 11/06/2016 21:50) ( [facility] 11/06/2016 22:10) Final results Test Result Flag Units (Reference) GLUCOSE 104 mg/dL (70-110) BUN 10 mg/dL (7-18) CREATININE 1.0 mg/dL (0.6-1.3) Estimated GFR >60 mL/min Estimated GFR- >60 mL/min Note: Persistent reduction over 3 months in eGFR<60 mL/min/1.73 m2 defines CKD. Patients with eGFR values>=60 mL/min/1.73 m2 may also have CKD if evidence ofpersistent proteinuria. Additional information may be foundat www.kidney.org. SODIUM 140 mmol/L (136-145) POTASSIUM 3.5 mmol/L (3.5-5.1) CHLORIDE 103 mmol/L (98-107) CARBON DIOXIDE 29 mmol/L (21-32) CALCIUM 8.8 mg/dL (8.5-10.1) TOTAL PROTEIN 6.9 g/dL (6.4-8.2) ALBUMIN 3.5 g/dL (3.3-5.0) BILIRUBIN, TOTAL 0.4 mg/dL (0.0-1.0) ALKALINE PHOSPHATASE 57 U/L (46-116) AST (SGOT) 17 U/L (15-37) ALT (SGPT) 21 U/L (12-78) . PROGRESS AND PROCEDURES Course of Care: patient with reactive airway disease, this time he denies smoking or any drug use. I am concerned ordered, including d-dimer, CBC. Chest x-ray recently was unremarkable, I will not repeat such at this time. Patient had improvement with DuoNeb in the emergency department. He states he cannot afford albuterol, this will prescribe albuterol pills, he is strongly encouraged to establish primary care provider, as he continues to return to the emergency department. 11/06/2016 22:52 BP: 116/69. HR: 9. RR: 98. O2 saturation: 96%. Pain level now: 2/10. 11/06/2016 21:27 BP: 109/69. HR: 84. RR: 17. O2 saturation: 94%. Pain level now: 3/10. Patient is stable. Physical exam findings are improved. Symptoms better. Patient/family counseled. Disposition: Discharged. Condition: good. CLINICAL IMPRESSION Acute dyspnea Moderate persistent asthma. INSTRUCTIONS Avoid tobacco smoke. (YOUR labs look great. This is a reactive process, and you need to establish care. No signs of any other major causes such as infection requiring antibiotics or lung blood clot. Please establish care and follow up.). Prescription Medications: Albuterol 4 mg: Take 1 orally every 6 hours for 10 days, as needed for wheezing. Dispense thirty (30). No refill. Understanding of the discharge instructions verbalized by patient. (Electronically signed by Maria Elena Campuzano P.A.-C 11/06/2016 23:21)
--- NOTE | 2016-11-06 21:23 | ED ORDER SUMMARY ---
..... Patient: GIRMA ASTORGA OrderSheet [facility] VisitID: [id number] [address] [place] [address] 26y, M Registration Date/Time: 11/06/2016 ORDER SHEET Weight: 65.7 kg (stated) Allergies: No Known Drug Allergy GENERAL ORDERS: RT Evaluation Stat (20:38 11/06/2016 JQuivey R.N. per protocol) (21:06 JQuivey R.N.) CBC w Diff Urgent (21:11 11/06/2016 EKoroleva P.A.-C) (Ack 21:16 LMuller) (22:20 JQuivey R.N.) CMP Urgent (21:11 11/06/2016 EKoroleva P.A.-C) (Ack 21:16 LMuller) (22:20 JQuivey R.N.) D-Dimer Urgent (21:11 11/06/2016 EKoroleva P.A.-C) (Ack 21:16 LMuller) (22:20 JQuivey R.N.) MEDICATION ORDERS: Albuterol Neb Tx 1 unit dose (HHN) (20:46 11/06/2016 JQuivey R.N. verbal order read back to EKoroleva P.A.-C) (21:06 JQuivey R.N.) Albuterol Neb Tx 1 unit dose (HHN) (21:06 11/06/2016 JQuivey R.N. verbal order read back to EKoroleva P.A.-C) (21:09 JQuivey R.N.) Dexamethasone PO 8mg (NOW) (22:47 11/06/2016 EKoroleva P.A.-C) (22:57 JQuivey R.N.) IV FLUIDS: ORDER SHEET NOTES: [Electronically signed by Maria Elena Campuzano P.A.-C (23:21 11/06/2016)] [Electronically signed by Edilson Otero R.N. (01:16 11/07/2016)] [Electronically locked/signed by Edilson Otero R.N. (01:16 11/07/2016)]
--- NOTE | 2016-11-06 21:23 | ED CLINICAL REPORT ---
Clinical Report - Physicians/Mid Levels [facility] [address] [place] [address] 11/06/2016 20:14 Patient: GIRMA ASTORGA Time Seen: 2110. Arrived- By private vehicle. Historian- patient. HISTORY OF PRESENT ILLNESS Chief Complaint: DYSPNEA, WHEEZING and HISTORY OF ASTHMA. Is still present. The dyspnea is described as mild. The patient has had a cough. Asthma triggers: unknown. (Patient presents with shortness of breath, worsening of his breathing over the last 24 hours, he has been out of his medications. He denies any chest pain. He denies any hemoptysis. Denies any foreign travel. Denies fevers. Patient does not have a primary care provider. He's been as being similar symptoms over the last few months.). REVIEW OF SYSTEMS No sore throat, fever, chills, abdominal pain or black stools. No difficulty with urination. All systems otherwise negative, except as recorded above. SOCIAL HISTORY Never smoker. No alcohol use or drug use. ADDITIONAL NOTES The nursing notes have been reviewed. PHYSICAL EXAM Vital Signs: 11/06/2016 20:25 BP: 119/69. HR: 93. RR: 22. O2 saturation: 92%. Temp: 97.8 F. Pain level now: 5/10. Appearance: Alert. No acute distress. ENT: Nose normal. Pharynx normal. Neck: Normal inspection. Neck supple. CVS: Normal heart rate and rhythm. Heart sounds normal. Respiratory: No respiratory distress. Decreased air movement. Wheezing present. Abdomen: Soft. Back: Normal inspection. No CVA tenderness. Skin: Skin warm. Normal skin color. Neuro: Oriented X 3. No motor deficit. LABS, X-RAYS, AND EKG Laboratory Tests: CBC w Diff: (SUNIL: 11/06/2016 21:50) ( MsgRcvd 11/06/2016 22:21) Final results Test Result Flag Units (Reference) WHITE BLOOD COUNT 9.2 K/uL (4.5-11.5) RED BLOOD COUNT 4.74 M/uL (4.50-5.90) HEMOGLOBIN 13.5 gm/dL (13.5-17.5) HEMATOCRIT 39.6 L % (41.0-53.0) MEAN CELL VOLUME 84 fL (80-100) MEAN CORPUSCULAR HGB 29 pg (26-34) MEAN CORPUSCULAR HGB CONC 34 g/dL (31-37) RED CELL DISTRIBUTION WIDTH 12.9 % (11.6-14.8) PLATELET COUNT 274 K/uL (150-400) NEUTROPHIL % 57.4 % (50-75) LYMPH % 20.1 L % (25-40) MONO % 6.3 % (3-14) EOSINOPHIL % 15.3 H % (0-4) BASOPHIL % 0.9 % (0-2) [id number]: (SUNIL: 11/06/2016 21:50) ( [facility] 11/06/2016 22:31) Final results Test Result Flag Units (Reference) D-DIMER QUANTITATIVE < 0.27 L ug/mLFEU (0.27-0.52) The primary value of this quantitative assay relates toits negative predictive value (i.e. exclusion) of pulmonaryembolism/deep vein thrombosis/DIC.Elevated levels of d-dimer may also occur with:, age, cancer, inflammation, liver disease,post-op, infection, hematoma, coronary disease, peripheralarteriopathy, bleeding disorders and thrombolytic treatment.Results should be correlated with other clinical andradiological data.Testing Methodology: Latex Immunoassay CMP: (SUNIL: 11/06/2016 21:50) ( [facility] 11/06/2016 22:10) Final results Test Result Flag Units (Reference) GLUCOSE 104 mg/dL (70-110) BUN 10 mg/dL (7-18) CREATININE 1.0 mg/dL (0.6-1.3) Estimated GFR >60 mL/min Estimated GFR- >60 mL/min Note: Persistent reduction over 3 months in eGFR<60 mL/min/1.73 m2 defines CKD. Patients with eGFR values>=60 mL/min/1.73 m2 may also have CKD if evidence ofpersistent proteinuria. Additional information may be foundat www.kidney.org. SODIUM 140 mmol/L (136-145) POTASSIUM 3.5 mmol/L (3.5-5.1) CHLORIDE 103 mmol/L (98-107) CARBON DIOXIDE 29 mmol/L (21-32) CALCIUM 8.8 mg/dL (8.5-10.1) TOTAL PROTEIN 6.9 g/dL (6.4-8.2) ALBUMIN 3.5 g/dL (3.3-5.0) BILIRUBIN, TOTAL 0.4 mg/dL (0.0-1.0) ALKALINE PHOSPHATASE 57 U/L (46-116) AST (SGOT) 17 U/L (15-37) ALT (SGPT) 21 U/L (12-78) . PROGRESS AND PROCEDURES Course of Care: patient with reactive airway disease, this time he denies smoking or any drug use. I am concerned ordered, including d-dimer, CBC. Chest x-ray recently was unremarkable, I will not repeat such at this time. Patient had improvement with DuoNeb in the emergency department. He states he cannot afford albuterol, this will prescribe albuterol pills, he is strongly encouraged to establish primary care provider, as he continues to return to the emergency department. 11/06/2016 22:52 BP: 116/69. HR: 9. RR: 98. O2 saturation: 96%. Pain level now: 2/10. 11/06/2016 21:27 BP: 109/69. HR: 84. RR: 17. O2 saturation: 94%. Pain level now: 3/10. Patient is stable. Physical exam findings are improved. Symptoms better. Patient/family counseled. Disposition: Discharged. Condition: good. CLINICAL IMPRESSION Acute dyspnea Moderate persistent asthma. INSTRUCTIONS Avoid tobacco smoke. (YOUR labs look great. This is a reactive process, and you need to establish care. No signs of any other major causes such as infection requiring antibiotics or lung blood clot. Please establish care and follow up.). Prescription Medications: Albuterol 4 mg: Take 1 orally every 6 hours for 10 days, as needed for wheezing. Dispense thirty (30). No refill. Understanding of the discharge instructions verbalized by patient. (Electronically signed by Maria Elena Campuzano P.A.-C 11/06/2016 23:21)
--- NOTE | 2016-11-06 21:23 | ED NURSING NOTES ---
Clinical Report - Nurses [facility] [place] [address] [place] [address] 11/06/2016 20:14 Patient: GIRMA ASTORGA TRIAGE Triage time 20:25. Acuity: LEVEL 3. Chief Complaint: DIFFICULTY BREATHING. 20:30. Alert. SEPSIS SCREEN: Sepsis Screen. Negative (no infection suspected/documented). --20:30 Edilson Otero R.N. 20:25 11/06/16. BP: 119/69. HR: 93. RR: 22. O2 saturation: 92% on room air. Temp: 97.8 F (oral). Pain level now: 5/10. --20:30 Edilson Otero R.N. Weight: 65.7 kg stated. Height/Length: 65 inches Per Patient. BMI: 24.1. --20:28 Edilson Otero R.N. Medications Ventolin HFA Inhalation. --20:28 Edilson Otero R.N. Oral medication for his breathing. --20:28 Edilson Otero R.N. Allergies No Known Drug Allergy. --20:28 Edilson Otero R.N. History Arrived by private vehicle. Historian: patient. Unaccompanied. Primary physician (None). This started today. Treatment CREATIVE SERVICES PRODUCER: (Oral med for breathing). PAST MEDICAL HX: Immunizations: up-to-date. SOCIAL HX: Never smoker. No alcohol use or drug use. No infectious disease exposure. ABUSE ASSESSMENT: No report of abuse. FALL RISK ASSESSMENT: Fall risk assessment completed. No fall risk identified. NUTRITIONAL RISK ASSESSMENT: The nutritional risk assessment revealed no deficiencies. FUNCTIONAL ASSESSMENT: Functional assessment: no impairments noted. LEARNING NEEDS ASSESSMENT: The learning needs assessment revealed no barriers. SKIN INTEGRITY ASSESSMENT: Skin integrity risk assessment completed. No skin integrity risk identified. --20:30 Edilson Otero R.N. ( Patient reports having been treated for bronchitis, breathing was better for a couple of days, now having increased difficulty breathing, states he is out of his inhaler). --20:33 Edilson Otero R.N. PROBLEMS: Asthma. Aphthous Ulcer. Bronchitis. --20:28 Edilson Otero R.N. ADDITIONAL SURGERIES: no known surgeries. Interventions ID band on patient. To treatment room. --20:30 Edilson Otero R.N. PHYSICAL ASSESSMENT 20:31. Ambulatory to room. Patient gowned. GENERAL / NEURO / PSYCH: Alert. Oriented X 4. HEENT: Mucous membranes are pink. RESPIRATORY: No respiratory distress. Expiratory and inspiratory bilateral wheezes diffusely. SKIN: Skin is warm and dry. Normal skin turgor. --20:31 Edilson Otero R.N. NURSING PROGRESS NOTES 20:31. Head of bed elevated. Two patient identifiers checked. Call light placed in reach. Bed placed in lowest position. Brakes of bed on. Patient ready for evaluation- chart flagged. --20:31 Edilson Otero R.N. 20:41 RT with pt for eval. --20:42 Edilson Otero R.N. 20:45 11/06/2016 Albuterol Neb TX 1 unit dose given. Given by the respiratory therapist. Allergies verified and confirmed 5 rights. --21:06 Edilson Otero R.N. 20:55 11/06/2016 Albuterol Neb TX 1 unit dose given. Given by the respiratory therapist. Allergies verified and confirmed 5 rights. --21:09 Edilson Otero R.N. 21:50. Patient ID band checked for patient name and birthdate: patient confirmed. Blood samples drawn from the right antecubital space with 23g butterfly by tech per protocol ; labeled in presence of the patient and sent to lab: [facility]. --22:01 Leonela Snyder 22:52. The patient is calm and resting quietly. RESPIRATORY: No respiratory distress. SKIN: Skin is warm and dry. Skin color within normal limits. --22:55 Edilson Otero R.N. 22:52 11/06/2016 Dexamethasone (Dexamethasone) PO 8 mg given. Allergies verified and confirmed 5 rights. --22:57 Edilson Otero R.N. DISPOSITION / DISCHARGE 21:27 11/06/16. BP: 109/69. HR: 84. RR: 17. O2 saturation: 94% on room air. Pain level now: 07/21. --21:31 Edilson Otero R.N. Departure time: 22:55. Condition at departure: stable. No learning barriers present. Discharge instructions provided and reviewed with the patient. Reviewed medication(s) side effects, precautions, dosing and course information. Prescription(s) given to the patient. Patient verbalized understanding. Written instructions provided in Swedish. The patient was discharged home and unaccompanied at time of discharge. He left the Emergency Department ambulatory and via private vehicle. Patient driving. FALL RISK ASSESSMENT: Fall risk assessment completed. No fall risk identified. --22:55 Edilson Otero R.N. 22:52 11/06/16. BP: 116/69. HR: 9. RR: 98. O2 saturation: 96%. Pain level now: 06/23. --22:55 Edilson Otero R.N. Locked/Released at 11/07/2016 1:16 by Edilson Otero R.N.
--- NOTE | 2016-11-06 21:23 | ED ORDER SUMMARY ---
..... Patient: GIRMA ASTORGA OrderSheet [facility] VisitID: [id number] [address] [place] [address] 26y, M Registration Date/Time: 11/06/2016 ORDER SHEET Weight: 65.7 kg (stated) Allergies: No Known Drug Allergy GENERAL ORDERS: RT Evaluation Stat (20:38 11/06/2016 JQuivey R.N. per protocol) (21:06 JQuivey R.N.) CBC w Diff Urgent (21:11 11/06/2016 EKoroleva P.A.-C) (Ack 21:16 LMuller) (22:20 JQuivey R.N.) CMP Urgent (21:11 11/06/2016 EKoroleva P.A.-C) (Ack 21:16 LMuller) (22:20 JQuivey R.N.) D-Dimer Urgent (21:11 11/06/2016 EKoroleva P.A.-C) (Ack 21:16 LMuller) (22:20 JQuivey R.N.) MEDICATION ORDERS: Albuterol Neb Tx 1 unit dose (HHN) (20:46 11/06/2016 JQuivey R.N. verbal order read back to EKoroleva P.A.-C) (21:06 JQuivey R.N.) Albuterol Neb Tx 1 unit dose (HHN) (21:06 11/06/2016 JQuivey R.N. verbal order read back to EKoroleva P.A.-C) (21:09 JQuivey R.N.) Dexamethasone PO 8mg (NOW) (22:47 11/06/2016 EKoroleva P.A.-C) (22:57 JQuivey R.N.) IV FLUIDS: ORDER SHEET NOTES: [Electronically signed by Maria Elena Campuzano P.A.-C (23:21 11/06/2016)] [Electronically signed by Edilson Otero R.N. (01:16 11/07/2016)] [Electronically locked/signed by Edilson Otero R.N. (01:16 11/07/2016)]
--- NOTE | 2016-11-07 01:16 | ED MED RECONCILIATION SUMMARY ---
Patient: GIRMA ASTORGA Medication Reconciliation Report [facility] VisitID: [id number] [address] [place] [address] 26y, M Registration Date/Time: 11/06/2016 Weight: 65.7 kg Height/Length: 65 in. BMI: 24.1 ALLERGIES: No Known Drug Allergy The patient's Home Medications are listed below: THE FOLLOWING MEDICATIONS NEED TO BE RECONCILED: Oral medication for his breathing Ventolin HFA Inhalation The source(s) of the original Home Medication information: Not obtained. The following Medications were given to the patient in the Emergency Department: Albuterol [Neb Tx] Neb TX 1 unit dose, administered: 11/06/2016 8:45:00 PM Albuterol [Neb Tx] Neb TX 1 unit dose, administered: 11/06/2016 8:55:00 PM Dexamethasone [PO] PO 8 mg, administered: 11/06/2016 10:52:00 PM The following Medications were prescribed to the patient: Albuterol 4 mg: Take 1 orally every 6 hours for 10 days, as needed for wheezing. Dispense thirty (30). No refill. -- Maria Elena Campuzano, PEugeniaAEdiliaC
--- NOTE | 2016-11-07 01:16 | ED DISCHARGE INSTRUCTIONS ---
Patient: GIRMA ASTORGA General Instructions [facility] VisitID: [id number] [address] [place] [address] 26y, M Registration Date/Time: 11/06/2016 Acute dyspnea Moderate persistent asthma. INSTRUCTIONS Avoid tobacco smoke. (YOUR labs look great. This is a reactive process, and you need to establish care. No signs of any other major causes such as infection requiring antibiotics or lung blood clot. Please establish care and follow up.). Prescription Medications: Albuterol 4 mg: Take 1 orally every 6 hours for 10 days, as needed for wheezing. Dispense thirty (30). No refill. Understanding of the discharge instructions verbalized by patient. ADDITIONAL INFORMATION Dyspnea (Shortness Of Breath) Shortness of Breath (also known as "Dyspnea") is the sense that you can't catch your breath or can't get enough air. Dyspnea can be caused by many different conditions such as: Acute asthma attack Worsening of emphysema (also called "COPD") -- a lung diseasethat is caused by smoking A mucus plug blocks a large air passage in the lung -- this can occur with emphysema or chronic bronchitis Congestive Heart Failure ("CHF") -- when a weak heart muscle allows excess fluid to collect inthe lungs Panic attacks, anxiety -- fear can cause rapid breathing ("hyperventilation") Pneumonia -- infection in the lung tissue Exposure to toxic fumes or smoke Pulmonary embolus (blood clot to the lung) Based on your visit today, the exact cause of your shortness of breath is not certain. Your tests do not show any of the serious causes of dyspnea. Sometimes, further testing is needed to find out if a serious problem exists. Therefore, it is important for you to watch for any new symptoms or worsening of your condition and follow up with your doctor as directed. Home Care: When your symptoms are better, resume your usual activities. If you smoke, you need to stop. Join a stop-smoking program or ask your doctor for help. Follow Up with your doctor or as advised by our staff. Get Prompt Medical Attention if any of the following occur: Increasing shortness of breath or wheezing Redness, pain or swelling in one leg Swelling in both legs or ankles Unexpected weight gain Chest, arm, shoulder, neck or upper back pain Dizziness, weakness or fainting Palpitations (the sense that your heart is fluttering, beating fast or hard) Fever of 100.4F (38C) or higher, or as directed by your healthcare provider Cough with dark colored or bloody sputum (mucus) Asthma [Adult] Asthma is a disease where the small air passages within the lung go into spasm and restrict the flow of air. Inflammation and swelling of the airways cause further restriction. During an acute asthma attack, these factors cause difficulty breathing, wheezing, cough and chest tightness. An asthma attack can be triggered by many things. Common triggers include the common cold, bronchitis, pneumonia, irritants such as smoke or pullutants in the air, emotional upset and heavy exercise. Inmany adults with asthma, allergies todust, mold, pollen and animal dander can cause an asthma attack. Skipping doses of daily asthma medicine can also bring on an asthma attack. Asthma can be controlled with proper medicines and decreased exposure to known allergens. Home Care: Take prescribed medicine exactly at the times advised. If you have a hand-held inhaler or aerosol breathing medicine, do not use it more than once every four hours, unless told to do so. (If you need this medicine more than every four hours, you may need to return to the Emergency Room.) If prescribed an antibiotic or prednisone, take all of the medicine even if you are feeling better after a few days. Do not smoke. Avoid being exposed to the smoke of others. Some persons with asthma have worsening of their symptoms when they take aspirin and non-steroidal medicines like ibuprofen (Motrin, Advil) and naproxen (Aleve, Naprosyn). Talk to your doctor if you think this may apply to you. Acetaminophen (Tylenol)should be safe to use. Follow Up with your doctor, or as advised by our staff. Always bring all of your current medicines with you for your doctor to see. If you do not already have one, talk to your doctor about developing a personalized "Asthma Action Plan." [NOTE: A pneumococcal vaccine and yearly flu shot (every fall) are recommended. Ask your doctor about this.] Get Prompt Medical Attention if any of the following occur: Increased wheezing or shortness of breath Need to use your inhalers more often than usual without relief Fever of 100.4F (38C) or higher, or as directed by your healthcare provider Coughing up lots of dark-colored or bloody sputum (mucus) Chest pain with each breath You do not start to improve within 24 hours Call 911 If Any Of The Following Occur : Trouble walking or talking because of shortness of breath If you use a peak flow meter andyou are still in the red zone (less than 50 percent) 15 minutes after using inhaler medication Lips or fingernails turning powell or blue Albuterol Sulfate Oral tablet, extended-release What is this medicine? ALBUTEROL (al BYOO ter ole) is a bronchodilator. It helps open up the airways in your lungs to make it easier to breathe. This medicine is used to treat and to prevent bronchospasm. How should I use this medicine? Take this medicine by mouth. Follow the directions on the prescription label. If this medicine upsets your stomach, take it with food or milk. Do not crush or chew extended-release tablets. Do not take more often than directed. Talk to your singing waiter or waitress regarding the use of this medicine in children. Special care may be needed. What side effects may I notice from receiving this medicine? Side effects that you should report to your doctor or health career services coordinator as soon as possible: allergic reactions like skin rash, itching or hives, swelling of the face, lips, or tongue breathing problems chest pain feeling faint or lightheaded, falls high blood pressure irregular heartbeat fever muscle cramps or weakness pain, tingling, numbness in the hands or feet vomiting Side effects that usually do not require medical attention (report to your doctor or health career services coordinator if they continue or are bothersome): cough diarrhea difficulty sleeping fast heartbeat headache nervousness, trembling stuffy or runny nose upset stomach What may interact with this medicine? anti-infectives like chloroquine and pentamidine caffeine cisapride diuretics medicines for colds medicines for depression or for emotional or psychotic conditions medicines for weight loss including some herbal products methadone some antibiotics like clarithromycin, erythromycin, levofloxacin, and linezolid some heart medicines steroid hormones like dexamethasone, cortisone, hydrocortisone theophylline thyroid hormones What if I miss a dose? If you miss a dose, take it as soon as you can. If it is almost time for your next dose, take only that dose. Do not take double or extra doses. Where should I keep my medicine? Keep out of the reach of children. Store Volmax ER tablets in the refrigerator (36 to 46 degrees F). Other tablets may be stored at room temperature (59 to 86 degrees F), check the packaging or ask your pharmacist. Keep container closed tightly. Throw away any unused medicine after the expiration date. What should I tell my health care provider before I take this medicine? They need to know if you have any of the following conditions: diabetes heart disease or irregular heartbeat high blood pressure pheochromocytoma seizures thyroid disease an unusual or allergic reaction to albuterol, levalbuterol, sulfites, other medicines, foods, dyes, or preservatives or trying to get breast-feeding What should I watch for while using this medicine? Tell your doctor or health career services coordinator if your symptoms do not improve. Do not take extra doses. If your asthma or bronchitis gets worse while you are using this medicine, call your doctor right away. If your mouth gets dry try chewing sugarless gum or sucking hard candy. Drink water as directed. You have been given the following additional information: Dyspnea Asthma, Acute (Adult) Albuterol Sulfate Oral tablet, extended-release (Electronically signed by Maria Elena Campuzano P.A.-C 11/06/2016 23:21)
--- NOTE | 2016-11-07 01:16 | ED MAR SUMMARY ---
..... Medication Administration Record [facility] [address] [place] [address] Patient: GIRMA ASTORGA Visit ID: [id number] 26y, M Weight: 65.7 kg Height/Length: 65 in BMI: 24.1 ALLERGIES: No Known Drug Allergy Given 20:45 11/06/2016 Edilson Otero REugeniaN. Medication Administered: ALBUTEROL [NEB TX], Dose: 1 unit dose Neb TX. Medication Ordered: Albuterol Neb Tx 1 unit dose (N). Given 20:55 11/06/2016 Edilson Otero REugeniaN. Medication Administered: ALBUTEROL [NEB TX], Dose: 1 unit dose Neb TX. Medication Ordered: Albuterol Neb Tx 1 unit dose (N). Given 22:52 11/06/2016 Edilson Otero R.N. Medication Administered: DEXAMETHASONE [PO] (DEXAMETHASONE), Dose: 8 mg PO. Medication Ordered: Dexamethasone PO 8mg (NOW).
--- NOTE | 2016-11-07 01:16 | ED MAR SUMMARY ---
..... Medication Administration Record [facility] [address] [place] [address] Patient: GIRMA ASTORGA Visit ID: [id number] 26y, M Weight: 65.7 kg Height/Length: 65 in BMI: 24.1 ALLERGIES: No Known Drug Allergy Given 20:45 11/06/2016 Edilson Otero REugeniaN. Medication Administered: ALBUTEROL [NEB TX], Dose: 1 unit dose Neb TX. Medication Ordered: Albuterol Neb Tx 1 unit dose (N). Given 20:55 11/06/2016 Edilson Otero REugeniaN. Medication Administered: ALBUTEROL [NEB TX], Dose: 1 unit dose Neb TX. Medication Ordered: Albuterol Neb Tx 1 unit dose (N). Given 22:52 11/06/2016 Edilson Otero R.N. Medication Administered: DEXAMETHASONE [PO] (DEXAMETHASONE), Dose: 8 mg PO. Medication Ordered: Dexamethasone PO 8mg (NOW).
--- NOTE | 2016-11-07 01:16 | ED MED RECONCILIATION SUMMARY ---
Patient: GIRMA ASTORGA Medication Reconciliation Report [facility] VisitID: [id number] [address] [place] [address] 26y, M Registration Date/Time: 11/06/2016 Weight: 65.7 kg Height/Length: 65 in. BMI: 24.1 ALLERGIES: No Known Drug Allergy The patient's Home Medications are listed below: THE FOLLOWING MEDICATIONS NEED TO BE RECONCILED: Oral medication for his breathing Ventolin HFA Inhalation The source(s) of the original Home Medication information: Not obtained. The following Medications were given to the patient in the Emergency Department: Albuterol [Neb Tx] Neb TX 1 unit dose, administered: 11/06/2016 8:45:00 PM Albuterol [Neb Tx] Neb TX 1 unit dose, administered: 11/06/2016 8:55:00 PM Dexamethasone [PO] PO 8 mg, administered: 11/06/2016 10:52:00 PM The following Medications were prescribed to the patient: Albuterol 4 mg: Take 1 orally every 6 hours for 10 days, as needed for wheezing. Dispense thirty (30). No refill. -- Maria Elena Campuzano, PEugeniaAEdiliaC
== END 2016-11-06 22:55 | disposition home or self-care (01) ==
LOC: ED SRH 20:14
DX: J45.40 Moderate persistent asthma, uncomplicated (principal); R06.00 Dyspnea, unspecified
CPT/HCPCS: 90100; 91556; 95059